=== PATIENT | female | born 1940 | race Caucasian/White ===

== ENCOUNTER 2023-07-24 06:09 | Day surgery (SDC) | payer OTHER, SELFPAY ==
[2023-07-24] VITALS (17 sets, daily range): BP systolic 95–188; BP diastolic 40–93; BMI 16.3
[2023-07-24 06:52] LABS: Hematocrit 34.8 % (37.0-47.0); Hemoglobin 11.9 g/dL (12.0-16.0); Mean Corp Hgb Conc. 34.2 g/dL (33.0-37.0); Mean Corpuscular Hgb 32.5 pg (27.0-31.0); Mean Corpuscular Volume 95.1 fL (81.0-99.0); Mean Platelet Volume 10.5 fL (7.4-10.4); Platelet Count 298 10^3/uL (130-400); Red Blood Cell Count 3.66 10^6/uL (4.20-5.40); Red Cell Dist. Width 12.5 % (11.5-14.5); White Blood Cell Count 6.4 10^3/uL (4.8-10.8)
[2023-07-24] MEDS: NSS 500 IV (07:00)
[2023-07-24 07:05] LABS: Blood Urea Nitrogen 19 mg/dl (7-17); Calcium 9.1 mg/dl (8.4-10.2); Carbon Dioxide 26 mmol/L (22-30); Chloride 108 mmol/L (98-107); Estimated Creatinine Clearance 39 ml/min; Glucose 107 mg/dl (70-99); Potassium 4.3 mmol/L (3.5-5.1); Sodium 137 mmol/L (135-145); eGFR > 60.00
[2023-07-24 07:07] LABS: APTT 33.1 Sec (23.4-35.0); INR 1.14; PT 14.6 Sec (11.4-14.6)
--- NOTE | 2023-07-24 07:10 | W.SUR.PREOP ---
Pre-Operative Surgical Note
-
I have examined this patient prior to the performance of the scheduled procedure.
The patient's condition is unchanged from the time of the current History and
Physical and the patient is able to undergo the scheduled procedure.
--- NOTE | 2023-07-24 08:39 | W.SUR.POST ---
Surgical Immediate Post Op
Note
Pre Op Diagnosis:
Post Op Diagnosis:
Procedure Performed: LLE angiogram, angioplasty DCB SFA x 2 and proximal SFA stenting x2
Primary Surgeon: Christofer
Anesthesia: Local and sedation
Estimated Blood Loss: <2cc
Fluids: see anesthesia flow sheet
Drains/Shunts: none
Specimens/Cultures: none
Doppler/Duplex/Angio (Y/N): Y
Complications: none
Operative Findings: occlusive dis below the knee with very small diseased reconstituted ankle peroneal artery with minimal outflow
[2023-07-24] MEDS: LOW STRENGTH ASPIRIN 81 MG PO (09:18)
[2023-07-24 09:19] LABS: Glucose - Point of Care 92 mg/dl (70-99)
--- NOTE | 2023-07-24 09:30 | OR.RPT ---
Operative Report
Operative Report
PROCEDURE DATE: 07/24/2023
Preoperative diagnosis: Chronic limb threatening ischemia left lower extremity.
Postoperative diagnosis: Same
Procedure:
1. Duplex assisted right common femoral artery cannulation.
2. Aortogram and pelvic angiogram.
3. Left lower extremity arteriogram with third order vessel catheterization of left popliteal artery via right common femoral artery puncture.
4. Balloon angioplasty of left distal superficial femoral artery with 4 mm angioplasty balloon.
5. Placement of Zilver PTX drug-eluting stent 6 mm x 4 cm distal left superficial femoral artery.
6. Placement of Zilver PTX drug-eluting stent 6 mm x 4 cm proximal to mid left superficial femoral artery.
7. Balloon angioplasty of origin of the left superficial femoral artery with standard and Bard Lutonix 5 mm x 4 cm drug-coated angioplasty balloon.
8. Right femoral angiogram.
9. Supervision and interpretation.
Surgeon: Christofer
Director Cardiac: None
Complications: None
Anesthesia: Local, sedation
Fluoroscopy:
9.8 min
33 mGy
6.36 Gy.cm2
Indications for procedure:
83-year-old female who presented to the office with ischemic rest pain and nonhealing tissue loss (ischemic ulcer). Noninvasive imaging suggested arterial insufficiency as did physical exam. Risk/benefits/alternatives of angiography and possible
revascularization were all fully discussed. Patient understood all wish to proceed.
Description of procedure:
Patient was identified, brought to the operating room. Placed on the table in the supine position. After the adequate administration of anesthesia, the patient was prepped and draped in the standard surgical fashion. A standard preoperative
timeout was undertaken and everybody was in agreement with the plan.
The right common femoral artery was accessed with a micropuncture kit under direct duplex ultrasound guidance. A 5 Upper Sorbian sheath was then advanced over a 0.035 inch wire, and a mcclain's hook catheter was advanced into the abdominal aorta.
Aortogram and pelvic angiogram was obtained. Findings as follows:
Significant eccentric atherosclerotic plaque throughout the aorta and bilateral common iliac arteries. However no significant stenosis identified throughout those arteries. No evidence of aneurysm. Bilateral external iliac arteries also widely
patent. Bilateral internal iliac arteries also appear generally patent without any obvious severe stenoses.
Using a floppy angled hydrophilic wire, the left common femoral artery was cannulated and the catheter was advanced. Left lower extremity arteriogram was obtained. Findings as follows:
Common femoral artery: Patent with no significant stenosis, though napkin ring like stenosis at the femoral bifurcation involving the origin of the SFA and profunda.
Profunda femoris artery: As above likely stenosis at the origin due to napkin ring like stenosis at the femoral bifurcation.
Superficial femoral artery: As noted above with napkin ring like severe stenosis very proximally/at origin. Beyond here in the midsegment about 6 to 8 cm beyond the origin there was an area of hypodensity suggestive of significant plaque. In
addition the flow/contrast flowing through there appeared to indicate a flow limitation. Beyond here in the distal SFA there was a focal occlusion. The artery tapered and then focally occluded for about a centimeter and then patent just beyond
there.
Popliteal artery: Patent with luminal irregularities. May be a mild above-knee stenosis but not as severe stenosis. Patent below the knee also with some luminal irregularities.
Anterior tibial artery: Chronically occluded. The dorsalis pedis on the foot was reconstituted via wispy peroneal collaterals for a short segment of about 4 cm. However it then essentially occluded or gave collaterals. The reconstituted dorsalis
pedis short segment was very diseased and small as well.
Tibial peroneal trunk: Chronically occluded.
Peroneal artery: Reconstituted at the ankle. Very small diminutive reconstituted vessel with minimal collateralization onto the foot.
Posterior tibial artery: Chronically occluded.
At this point I felt that there was no target vessel for revascularization below the knee. The distal peroneal artery was a very small diseased vessel and I did not think that even a surgical bypass to that artery (with the risks involved therein)
would be of any benefit. Therefore I felt that enhancing the inflow might be of benefit to dry flow through collaterals. Therefore at this point I selectively cannulated the superficial femoral artery. I then exchanged for a [employer] wire and an up
and over 6 Upper Sorbian sheath. The patient was given 4000 units of intravenous heparin. Then under roadmap assisted guidance I traverse the area of occlusion focally in the distal SFA. This was done with a flap angled hydrophilic wire and then I
advanced a CXI catheter. Angiogram confirmed as in the true lumen distally. I then exchanged back for a Storq wire. I then performed predilation with a 4 mm angioplasty balloon of the occluded short segment of SFA. I then primarily stented that
segment with a 6 mm x 4 cm Zilver PTX drug-eluting stent. I then primarily stented the more proximal SFA lesion (in the proximal to mid SFA) with a Zilver PTX 6 mm x 4 cm drug-eluting stent. I then post angioplastied both of the stents with a 5 mm
angioplasty balloon. Completion angiogram demonstrated excellent result with no residual stenosis at those locations. Next I elected to try to balloon angioplasty the origin of the SFA napkin ringlike stenosis given the patient being high risk for
surgical correction (femoral endarterectomy). I therefore then used a 4 mm in angioplasty balloon to predilate the lesion/prepped the lesion. I then used a 5 mm x 4 cm Bard Lutonix drug-coated balloon with prolonged 2-minute inflation. Completion
angiogram now demonstrated excellent result. There was actually complete resolution of the origin of the SFA stenosis. The remainder of the SFA stenoses also were nicely treated with a stent with no residual stenoses. Brisk flow into the runoff
and collaterals. At this point I was very satisfied. I then withdrew my sheath to the right external iliac artery. Right femoral angiogram demonstrated good puncture in the right common femoral artery. Therefore wires and catheters were
withdrawn. Protamine was given to reverse the heparin. The sheath was withdrawn and manual pressure was applied. The patient tolerated the procedure well. The left groin was noted to be hemostatic. Patient had a palpable left popliteal pulse
upon completion.
The patient tolerated procedure well.
[2023-07-24] MEDS: NSS 1000 IV (10:15)
== END 2023-07-24 14:30 | disposition home or self-care (01) ==
LOC: CATH 06:09
PROVIDERS: ATTENDING PHYSICIAN Surgery Vascular Surgery; FAMILY PHYSICIAN Family Medicine; OTHER PHYSICIAN Internal Medicine Cardiovascular Disease
DX: I70.245 Atherosclerosis of native arteries of left leg with ulceration of other part of foot (principal); L97.529 Non-pressure chronic ulcer of other part of left foot with unspecified severity; E11.9 Type 2 diabetes mellitus without complications; Z79.01 Long term (current) use of anticoagulants; Z87.891 Personal history of nicotine dependence; Z79.4 Long term (current) use of insulin
CPT/HCPCS: 37226; 75625; 75716; 76937; 80048; 82962; 85027; 85610; 85730; 86850; 86900; 86901; 93005; C1725; C1769; C1874; C1887; C1894; Q9967

== ENCOUNTER 2023-08-02 13:59 | Emergency (ER) | payer OTHER, SELFPAY ==
[2023-08-02 14:03] VITALS: BP 179/75
[2023-08-02 15:00] VITALS: BP 169/50
[2023-08-02 15:36] LABS: % Basophils 0.6 % (0-2); % Eosinophils 4.2 % (0-6); % Immature Granulocytes 1.1 % (0-0.5); % Monocytes 7.3 % (1.7-9.3); % Neutrophils 56.8 % (42.2-75.2); Absolute Eosinophils 0.3 10^3/uL (0-0.7); Absolute Immature Granulocytes 0.1 10^3/uL (0-0.05); Absolute Lymphocytes 1.9 10^3/uL (1.2-3.4); Absolute Monocytes 0.5 10^3/uL (0.1-0.6); Absolute Neutrophils 3.5 10^3/uL (1.4-6.5); Hematocrit 35.9 % (37.0-47.0); Hemoglobin 12.2 g/dL (12.0-16.0); Mean Corpuscular Hgb 32.6 pg (27.0-31.0); Mean Platelet Volume 10.7 fL (7.4-10.4); Nucleated Red Blood Cells % 0 %; Platelet Count 311 10^3/uL (130-400); Red Blood Cell Count 3.74 10^6/uL (4.20-5.40); Red Cell Dist. Width 12.2 % (11.5-14.5); White Blood Cell Count 6.2 10^3/uL (4.8-10.8)
[2023-08-02 15:50] LABS: INR 1.26; PT 15.6 Sec (11.4-14.6)
[2023-08-02 15:56] LABS: ALT (SGPT) 18 U/L (0-35); AST (SGOT) 36 U/L (14-36); Albumin 3.8 g/dl (3.5-5.0); Alkaline Phosphatase 94 U/L (38-126); Blood Urea Nitrogen 23 mg/dl (7-17); Carbon Dioxide 25 mmol/L (22-30); Chloride 107 mmol/L (98-107); Glucose 124 mg/dl (70-99); Potassium 4.4 mmol/L (3.5-5.1); Sodium 140 mmol/L (135-145); Total Bilirubin 1.3 mg/dl (0.2-1.3); Total Protein 7.2 g/dl (6.3-8.2); eGFR > 60.00
[2023-08-02 16:00] VITALS: BP 170/63
[2023-08-02 16:07] LABS: Troponin I < 0.012 ng/ml
[2023-08-02 16:08] VITALS: BMI 16.1
--- NOTE | 2023-08-02 16:09 | ED.GENMED ---
History of Present Illness
General
Chief Complaint: Fainting/Passed Out
Source: patient and family (Daughter)
Exam Limitations: none
Time Seen by Provider: 08/02/23 14:11
Nursing documentation reviewed up to this point in time: agreed with
Travel History
Have you had any contact with someone who has COVID-19?: No
Do you have any symptoms of coronavirus? Fever > 100 degrees, chills, cough, shortness of breath, sore throat, loss of taste or smell, muscle aches, or headache?: No
History of Present Illness
History of Present Illness:
83-year-old female with a past medical history of mild dementia, atrial fibrillation on Coumadin, hypertension, insulin-dependent diabetes who presents to the emergency room with her daughter for evaluation after syncopal event. Patient reports
that she was shopping with her daughter and while she was walking on the store she began to feel like 'something was not right.' She says that staff sat her down in the chair at the store. She says that she thinks she may have passed out. Her
daughter says that patient began to look somewhat weak and was complaining of being dizzy. Daughter says that she had brief syncopal event that lasted less than 5 seconds. Daughter said that she did not fall down or injure herself. Patient says
that aside from feeling dizzy she felt mildly nauseated but did not have any other prodromal symptoms�no chest pain, shortness of breath, palpitations. No headache or abdominal pain/flank pain. She says that she feels mildly fatigued but otherwise
feels well here in the emergency room and is already requesting discharge. Her daughter notes that she had to similar episodes earlier this week but refused transport to the emergency room for assessment.
Past History
Past History
ED Past Medical History: CVA, HTN and IDDM
ED Past Surgical History: Appendectomy, Cholecystectomy, Orthopedic and Tonsilectomy
Social History
Tobacco: Non-smoker
Alcohol: None
Personal:
Living: with family
Review of Systems
Review of Systems
All Other Systems: ROS reviewed and negative except as documented in HPI and ROS
Constitutional: Reports fatigue; Denies fever
Respiratory: Denies cough or trouble breathing
Cardiac: Reports syncope; Denies chest pain, diaphoresis or palpitations
ABD/GI: Reports nausea; Denies abdominal pain, vomiting or diarrhea
: Denies flank pain
Musculoskeletal: Denies neck pain or back pain
Neurological: Denies headache, weakness or numbness
Phy Exam
Physical Exam
Physical Exam:
General: Awake, alert, oriented x3; she is cachectic; no acute distress
Head: Normocephalic, atraumatic
Eyes: Conjunctiva normal, EOMI, pupils equal round reactive to light bilaterally
Throat: Airway intact, handling secretions
Neck: Trachea midline, supple without meningismus
Lungs: Clear to auscultation bilaterally, no wheezing, rales, rhonchi
Heart: Regular rate and rhythm, no murmurs, gallops, or rubs appreciated
Abd: Soft, non distended, nontender with no abdominal masses
Neuro: Cranial nerves grossly intact, speech fluid
Extremities: Atraumatic, warm well-perfused
Scores
Heart Failure Risk
Heart Failure Risk Score: Not Applicable
Heart Score for Chest Pain Patients
STEMI patient?: Not applicable
Withdrawal Assessment of Alcohol
Withdrawal Assessment Completed?: Not applicable
Course
Orders/Labs/Results
Orders:
Orders
08/02/23 14:08
Electrocardiogram (*1) Urgent
Reason for Study: Chest Pain
EKG- Treatment ONCE
08/02/23 15:27
Complete Blood Count/With Diff Urgent
Comprehensive Metabolic Panel Urgent
Folate Urgent
Comment: ADD ON
Prothrombin Time Urgent
Troponin I Urgent
Vitamin B12 Urgent
Comment: ADD ON
08/02/23 15:37
Folate Urgent
Vitamin B12 Urgent
08/02/23 15:43
Add On- LAB Urgent
Tests Added?: Folate, Vitamin B12
Abnormal Lab Results
08/02/23
15:27
RBC 3.74 L 10^6/uL
(4.20-5.40)
Hct 35.9 L %
(37.0-47.0)
MCH 32.6 H pg
(27.0-31.0)
MPV 10.7 H fL
(7.4-10.4)
Abs Immat Gran (auto) 0.1 H 10^3/uL
(0-0.05)
Immature Gran % 1.1 H %
(0-0.5)
PT 15.6 H Sec
(11.4-14.6)
BUN 23 H mg/dl
(7-17)
Glucose 124 H mg/dl
(70-99)
08/02/23 15:27
08/02/23 15:27
Vital Signs
Initial and Last Documented VS:
Initial Vital Signs
Temp Pulse Resp BP Pulse Ox
36.3 C 51 20 179/75 100
08/02/23 14:03 08/02/23 14:03 08/02/23 14:03 08/02/23 14:03 08/02/23 14:03
Last Documented Vital Signs
Temp Pulse Resp BP Pulse Ox
36.3 C 59 16 173/85 98
08/02/23 14:03 08/02/23 17:15 08/02/23 17:15 08/02/23 17:00 08/02/23 17:15
MDM/Problems Addressed
Differential Diagnosis Includes:
Vasovagal syncope, orthostatic/postural syncope, dehydration, anemia, electrolyte derangement, dysrhythmia; nothing by history or exam to suggest acute MD, PE, subarachnoid hemorrhage, AAA or other emergent pathology
MDM/Problems Addressed:
83-year-old female with history as document presents for evaluation after syncopal episode today happened while she was shopping at the grocery store. She feels well here aside from some mild fatigue. She had 2 similar episodes earlier this week
as well. She is hypertensive but has otherwise normal vitals here. Physical exam as above. Plan to check basic labs including CBC and CMP; check an INR as she is on Coumadin. Check B12 and folate. Monitor on telemetry and reassess at the above.
Labs reviewed: CBC unremarkable, CMP no clinically significant abnormalities. Troponin was ordered in triage despite patient denying any chest pain and is undetectable. Her INR is slightly subtherapeutic. EKG reviewed by me shows A-fib with slow
ventricular response heart rate in the 50s. Will continue to monitor in the ER.
After ED monitoring patient has been stable and asymptomatic. She feels well and is requesting discharge. Suspect this was likely medical or postural syncope. I did offer admission for observation based on her age but patient is adamant that she
wishes to go home. I advised her to follow-up with her primary care physician�I did note that she needs to discuss her weight with her primary physician as she has a BMI of 16 today and likely her frailty is contributing to her episodes of syncope.
She indicated understanding. Spoke with patient, daughter at bedside about return precautions and follow-up and all questions were answered.
Acute Exacerbation and/or Progression of Chronic Illness:
Acutely hypertensive
Acute Exacerbation and/or Progression of Chronic Illness: HTN
*Pulse Oximetry
Patient hypoxic: no
*EKG
Interpreted by ED Provider?: Yes
Heart Rate: 52
Rate: bradycardiac
Rhythm: a-fib
[place]: normal axis
Interval: normal interval
QRS Pattern: low voltage
Ischemia: no ischemia
*Critical Care Note
Total Time (30-74mins, 75-104mins- exclusive of procedures): Not Applicable
Data Reviewed
Review of Other/Old Records Reveals: Labs and Records
Source: patient and family (Daughter)
Patient Management
Social determinants of health affecting care: Strong social support
Escalation/DeEscalation of care consider admission/obs:
Offered admission but patient prefers discharge�shared decision making discharged with close PCP follow-up
ED Attending Note
-
Portions of this chart may have been created with voice recognition software.� Occasional wrong word or��sound alike� substitutions may have occurred due to the inherent limitations of voice recognition software.
Discharge Plan
Departure
Patient Disposition: Home (Routine Discharge)
Date of Disposition: 08/02/23
Time of Disposition: 17:41
Patient with high blood pressure during this ER visit?: Yes
Discharge Problem:
Syncope
Instructions: Syncope (Fainting) (DC)
Prescriptions:
No Action
warfarin 7.5 mg Tablet
7.5 mg PO TUTH
Rx Instructions:
alternate with 5mg po depending on INR
acyclovir 400 mg Tablet
400 mg PO BID
warfarin 5 mg Tablet
5 mg PO SUMOWEFRSA
cyclosporine [Restasis] 0.05 % Dropperette
1 drp BOTH EYES DAILY
rosuvastatin 5 mg Tablet
5 mg PO HS
solifenacin 10 mg Tablet
10 mg PO DAILY
Prolia 60 mg/mL Syringe
60 mg SC [id number]
Rx Instructions:
last given in February
mirabegron [Myrbetriq] 50 mg Tablet Extended Release 24 Hr
50 mg PO DAILY
tramadol 50 mg Tablet
50 mg PO Q6HPRN PRN (Reason: moderate pain) 10 Days Qty: 40 0RF
infliximab [Remicade] 100 mg Recon Soln
100 mg IV Q8W
insulin lispro [Humalog KwikPen Insulin] 100 unit/mL Insulin Pen
1 sliding scale dose SC DIRECTED
acetaminophen 500 mg tablet
1,000 mg PO TID PRN (Reason: PAIN)
donepezil 5 mg Tablet
5 mg PO HS
propranolol 20 mg Tablet
20 mg PO BID
aspirin 81 mg Tablet,Delayed Release (Dr/Ec)
81 mg PO DAILY Qty: 90 0RF
Referrals:
Lai Monzon DO [Family Provider] - Follow up in 5-7 days
Activity Restrictions/Additional Instructions:
Thank you for visiting the Emergency Department at [facility].
1. Please schedule a follow up appointment as directed. Call first thing tomorrow morning to make an appointment.
2. If indicated, please take your medications as instructed and indicated on discharge paperwork.
3. If any of your symptoms do not improve, or persist, or become more severe within 6-12 hours, please return to the emergency department for further care.
4. Please return to the emergency department if you develop a headache, neck pain/stiffness, fever greater than 100.4F, chest pain, shortness of breath, persistent nausea, vomiting, slurred speech, difficulty walking, numbness/tingling, weakness,
signs of infection or any other symptoms that are worrisome to you.
Please call [phone] if you have any questions.
Interventions
Interventions:
*Risk Screen - Suicide Last Done: 08/02/23 14:03
*General Assessment Last Done: 08/02/23 14:03
*Neglect/Abuse Screening Last Done: 08/02/23 14:03
ED- Fall Risk Assessment Last Done: 08/02/23 16:12
ED- Cardiac Assessment Last Done: 08/02/23 16:12
ED- Neurological Assessment Last Done: 08/02/23 16:12
Discharge Date and Time
Print Language: EMIRATI
[2023-08-02 17:00] VITALS: BP 173/85
[2023-08-02 17:43] LABS: Folate > 20.0 ng/ml (2.76-20); Vitamin B12 952 pg/ml (239-931)
== END 2023-08-02 18:08 | disposition home or self-care (01) ==
LOC: EMR 13:59
PROVIDERS: EMERGENCY PHYSICIAN Emergency Medicine; FAMILY PHYSICIAN Family Medicine
DX: R55 Syncope and collapse (principal); I10 Essential (primary) hypertension; F03.A0 Unspecified dementia, mild, without behavioral disturbance, psychotic disturbance, mood disturbance, and anxiety; I48.91 Unspecified atrial fibrillation; E11.9 Type 2 diabetes mellitus without complications; Z79.01 Long term (current) use of anticoagulants
CPT/HCPCS: 99284; 80053; 82607; 82746; 84484; 85025; 85610; 93005

== ENCOUNTER → 2023-09-04 14:43 | Outpatient (REF) | payer OTHER, SELFPAY | LOC: RAD 14:43 | PROVIDERS: ATTENDING PHYSICIAN Surgery Vascular Surgery; FAMILY PHYSICIAN Family Medicine | DX: I77.9 Disorder of arteries and arterioles, unspecified (principal) | CPT/HCPCS: 93922; 93925 ==

== ENCOUNTER → 2023-11-06 15:15 | Outpatient (REF) | payer OTHER, SELFPAY | LOC: RAD 15:15 | PROVIDERS: ATTENDING PHYSICIAN Internal Medicine Rheumatology; FAMILY PHYSICIAN Family Medicine | DX: M05.89 Other rheumatoid arthritis with rheumatoid factor of multiple sites (principal); M25.532 Pain in left wrist | CPT/HCPCS: 73110 ==

== ENCOUNTER → 2024-02-19 13:47 | Outpatient (REF) | payer OTHER, SELFPAY | LOC: RAD 13:47 | PROVIDERS: ATTENDING PHYSICIAN Physician Assistant; FAMILY PHYSICIAN Family Medicine | DX: I77.9 Disorder of arteries and arterioles, unspecified (principal) | CPT/HCPCS: 93922; 93925 ==

== ENCOUNTER → 2024-04-29 12:47 | Outpatient (REF) | payer OTHER, SELFPAY | LOC: HWRAD 12:47 | PROVIDERS: ATTENDING PHYSICIAN Podiatrist Foot & Ankle Surgery; FAMILY PHYSICIAN Family Medicine | DX: L97.524 Non-pressure chronic ulcer of other part of left foot with necrosis of bone (principal) | CPT/HCPCS: 73630 ==

== ENCOUNTER 2024-05-11 06:44 | Emergency (ER) | payer OTHER, SELFPAY ==
[2024-05-11 06:50] VITALS: BP 154/90
[2024-05-11 07:38] LABS: % Basophils 0.3 % (0-2); % Eosinophils 2.5 % (0-6); % Immature Granulocytes 0.1 % (0-0.5); % Lymphocytes 17.6 % (20.5-51.1); % Monocytes 9.3 % (1.7-9.3); % Neutrophils 70.2 % (42.2-75.2); Absolute Eosinophils 0.2 10^3/uL (0-0.7); Absolute Lymphocytes 1.3 10^3/uL (1.2-3.4); Absolute Monocytes 0.7 10^3/uL (0.1-0.6); Absolute Neutrophils 5.1 10^3/uL (1.4-6.5); Hematocrit 34.2 % (37.0-47.0); Hemoglobin 11.4 g/dL (12.0-16.0); Mean Corp Hgb Conc. 33.3 g/dL (33.0-37.0); Mean Corpuscular Hgb 31.9 pg (27.0-31.0); Mean Corpuscular Volume 95.8 fL (81.0-99.0); Mean Platelet Volume 10.1 fL (7.4-10.4); Nucleated Red Blood Cells % 0 %; Platelet Count 382 10^3/uL (130-400); Red Blood Cell Count 3.57 10^6/uL (4.20-5.40); Red Cell Dist. Width 13.8 % (11.5-14.5); White Blood Cell Count 7.3 10^3/uL (4.8-10.8)
[2024-05-11 07:53] LABS: ALT (SGPT) 15 U/L (0-35); AST (SGOT) 30 U/L (14-36); Alkaline Phosphatase 138 U/L (38-126); Blood Urea Nitrogen 16 mg/dl (7-17); Calcium 8.3 mg/dl (8.4-10.2); Carbon Dioxide 23 mmol/L (22-30); Chloride 106 mmol/L (98-107); Glucose 114 mg/dl (70-99); Potassium 4.4 mmol/L (3.5-5.1); Sodium 137 mmol/L (135-145); Total Bilirubin 2.5 mg/dl (0.2-1.3); eGFR > 60.00
[2024-05-11 09:07] VITALS: BP 134/86
[2024-05-11 09:10] VITALS: BMI 17.4
--- NOTE | 2024-05-11 09:28 | ED.GENMED ---
History of Present Illness
General
Chief Complaint: Breathing Problem
Time Seen by Provider: 05/11/24 08:57
History of Present Illness
History of Present Illness:
84-year-old female with history of A-fib on Coumadin, diabetes, pacemaker presenting to the emergency department for episode of difficulty breathing. Patient reports she woke up at 530 this morning to go to the bathroom. When she got up, felt like
there was something stuck in her throat, could not clear her throat and could not breathe. She called her son and son notes that on the phone she sounded very dyspneic, could not talk. He called an ambulance, on medics arrival, patient sitting on
the couch, noted to be satting 91%. They gave her a DuoNeb and reported that symptoms had improved. On arrival, patient continues to report that symptoms have improved. Denies any chest pain. Denies any fever or cough. Does note that she was
recently being treated for a left first toe infection, which is improving. Denies any history of lung disease. Denies additional acute medical complaints
Past History
Past History
ED Past Medical History: CVA, HTN and IDDM
ED Past Surgical History: Appendectomy, Cholecystectomy, Orthopedic and Tonsilectomy
Social History
Tobacco: Non-smoker
Alcohol: None
Personal:
Living: with family
Phy Exam
Physical Exam
Physical Exam:
General: Well-appearing, no clinical signs of dehydration, nontoxic and in no acute distress
HEENT: protecting airway
Neck: appears supple
CV: Normal heart rate, regular rhythm, no evidence of cyanosis
Resp: No accessory muscle use, no increased work of breathing, lungs clear to auscultation bilaterally. Normal phonation of voice
Abd: no distension
Extremities: No deformities, no swelling, no erythema. Healing wound to the left first toe at the medial aspect. No drainage. No swelling. No erythema
Neuro: alert, no focal neurologic deficit
: deferred
Rectal: deferred
Psych: Normal affect
Skin: Intact
Scores
Heart Failure Risk
Heart Failure Risk Score: Not Applicable
Course
Orders/Labs/Results
Orders:
Orders
05/11/24 06:53
Electrocardiogram (*1) Urgent
Reason for Study: Shortness of Breath
EKG- Treatment ONCE
05/11/24 07:18
CMP [Comprehensive Metabolic Panel] Urgent
Complete Blood Count/With Diff Urgent
05/11/24 09:23
CR Chest - 2 Views Urgent
Comment:
Reason For Exam: sob
05/11/24 09:39
COVID-19 Antigen Urgent
Source: Nasal Swab
Prothrombin Time Urgent
Influenza A+B Rapid Molecular Urgent
JJ Source: Nasal Swab
Specimen Description:
Abnormal Lab Results
05/11/24 05/11/24
07:18 09:39
RBC 3.57 L 10^6/uL
(4.20-5.40)
Hgb 11.4 L g/dL
(12.0-16.0)
Hct 34.2 L %
(37.0-47.0)
MCH 31.9 H pg
(27.0-31.0)
Absolute Monos (auto) 0.7 H 10^3/uL
(0.1-0.6)
Lymphocytes % 17.6 L %
(20.5-51.1)
PT 17.1 H Sec
(11.4-14.6)
Glucose 114 H mg/dl
(70-99)
Calcium 8.3 L mg/dl
(8.4-10.2)
Total Bilirubin 2.5 H mg/dl
(0.2-1.3)
Alkaline Phosphatase 138 H U/L
(38-126)
Albumin 3.0 L g/dl
(3.5-5.0)
05/11/24 07:18
05/11/24 07:18
Vital Signs
Initial and Last Documented VS:
Initial Vital Signs
Temp Pulse Resp BP Pulse Ox
97.6 F 112 30 154/90 95
05/11/24 06:50 05/11/24 06:50 05/11/24 06:50 05/11/24 06:50 05/11/24 06:50
Last Documented Vital Signs
Temp Pulse Resp BP Pulse Ox
97.6 F 89 15 138/77 98
05/11/24 06:50 05/11/24 11:36 05/11/24 11:36 05/11/24 11:53 05/11/24 11:36
MDM/Problems Addressed
MDM/Problems Addressed:
84-year-old female with history of A-fib on Coumadin, pacemaker, diabetes presenting to the emergency department for episode of difficulty breathing. Vital signs on arrival are significant for tachycardia, which has improved without intervention.
On exam, patient is resting comfortably, no acute distress. Normal phonation of voice, no increased work of breathing. No focal abnormal lung sounds. Unclear etiology surrounding preceding events. Patient notes at the time, she felt like she had
something stuck in her throat that she could not clear, and she felt like she 'needed a cough medication '. She reports resolution of symptoms after the medics gave her a DuoNeb. Suspect possible mucous plug versus phlegm that was temporarily
obstructing airway, and has since resolved. Patient is afebrile, nontoxic. Screening laboratory analysis is unremarkable. Will obtain chest x-ray imaging to ensure no developing aspiration or pneumonia. Will send viral swabs.
11:35 - Chest x-ray without significant acute cardiopulmonary disease, mention of small pleural effusions. Viral swabs are negative. On reassessment, patient remains stable, particularly from a respiratory standpoint. Feel that she is stable for
discharge with close interval follow-up with her primary care doctor. Return precautions discussed and patient verbalized understanding
*EKG
Interpreted by ED Provider?: Yes
EKG Intrepretation Date: 05/11/24
EKG Intrepretation Time: 09:33
Interpretation: abnormal
Heart Rate: 90
Rate: normal
Rhythm: a-fib
[place]: normal axis
QRS Pattern: other (incomplete RBBB)
Ischemia: non-specific ST changes
*Critical Care Note
Total Time (30-74mins, 75-104mins- exclusive of procedures): Not Applicable
ED Attending Note
-
Portions of this chart may have been created with voice recognition software.� Occasional wrong word or��sound alike� substitutions may have occurred due to the inherent limitations of voice recognition software.
Discharge Plan
Departure
Patient Disposition: Home (Routine Discharge)
Date of Disposition: 05/11/24
Time of Disposition: 11:36
Patient with high blood pressure during this ER visit?: No
Condition: Good
Discharge Problem:
Acute dyspnea
Instructions: Shortness of Breath (Dyspnea) (DC)
Prescriptions:
New
albuterol sulfate 90 mcg/actuation HFA aerosol inhaler
1 puff inhalation Q6H PRN (Reason: shortness of breath or wheezing) Qty: 8.5 0RF
No Action
warfarin 7.5 mg Tablet
7.5 mg PO TUTH
Rx Instructions:
alternate with 5mg po depending on INR
acyclovir 400 mg Tablet
400 mg PO BID
warfarin 5 mg Tablet
5 mg PO SUMOWEFRSA
cyclosporine [Restasis] 0.05 % Dropperette
1 drp BOTH EYES DAILY
rosuvastatin 5 mg Tablet
5 mg PO HS
solifenacin 10 mg Tablet
10 mg PO DAILY
Prolia 60 mg/mL Syringe
60 mg SC [id number]
Rx Instructions:
last given in February
mirabegron [Myrbetriq] 50 mg Tablet Extended Release 24 Hr
50 mg PO DAILY
tramadol 50 mg Tablet
50 mg PO Q6HPRN PRN (Reason: moderate pain) 10 Days Qty: 40 0RF
infliximab [Remicade] 100 mg Recon Soln
100 mg IV Q8W
insulin lispro [Humalog KwikPen Insulin] 100 unit/mL Insulin Pen
1 sliding scale dose SC DIRECTED
acetaminophen 500 mg tablet
1,000 mg PO TID PRN (Reason: PAIN)
donepezil 5 mg Tablet
5 mg PO HS
propranolol 20 mg Tablet
20 mg PO BID
aspirin 81 mg Tablet,Delayed Release (Dr/Ec)
81 mg PO DAILY Qty: 90 0RF
Referrals:
Lai Monzon DO [Family Provider] -
Activity Restrictions/Additional Instructions:
You were seen in the emergency department for episode of difficulty breathing
You were found to have normal blood work and viral swabs, as well as chest x-ray imaging. Your INR was noted to be low, which you were already aware of. Please follow-up with your doctor as scheduled for adjustment of your Coumadin.
Please follow-up closely with your primary care physician.
Return to the emergency department for any worsening of your symptoms, or any development of chest pain, difficulty breathing, abdominal pain with persistent vomiting and inability to tolerate food or liquid by mouth (concern for dehydration),
weakness, headache or confusion, fever greater than 100.4, or any additional symptoms that are concerning to you.
Thank you for choosing [facility].
Interventions
Interventions:
*Risk Screen - Suicide Last Done: 05/11/24 06:50
*General Assessment Last Done: 05/11/24 10:00
*Neglect/Abuse Screening Last Done: 05/11/24 06:50
ED- Fall Risk Assessment Last Done: 05/11/24 12:12
*ED COVID-19 Vaccine History Last Done: 05/11/24 10:00
*Nursing Disposition Last Done: 05/11/24 12:12
ED- Cardiac Assessment Last Done: 05/11/24 10:00
ED-Musculoskeletal Assessment Last Done: 05/11/24 10:00
ED- Pulmonary Assessment Last Done: 05/11/24 10:00
Discharge Date and Time
Discharge Date/Time: 05/11/24 12:13
Print Language: KINYARWANDA
[2024-05-11 09:57] LABS: INR 1.37; PT 17.1 Sec (11.4-14.6)
[2024-05-11 10:11] LABS: COVID-19 Antigen Negative (Negative)
[2024-05-11 11:05] VITALS: BP 136/70
[2024-05-11 11:53] VITALS: BP 138/77
== END 2024-05-11 12:13 | disposition home or self-care (01) ==
LOC: EMR 06:44
PROVIDERS: Student in an Organized Health Care Education/Training Program; EMERGENCY PHYSICIAN Student in an Organized Health Care Education/Training Program; FAMILY PHYSICIAN Family Medicine
DX: R06.00 Dyspnea, unspecified (principal); J90 Pleural effusion, not elsewhere classified; I48.91 Unspecified atrial fibrillation; E11.9 Type 2 diabetes mellitus without complications; I10 Essential (primary) hypertension; Z79.01 Long term (current) use of anticoagulants; Z79.4 Long term (current) use of insulin; Z86.73 Personal history of transient ischemic attack (TIA), and cerebral infarction without residual deficits; Z90.49 Acquired absence of other specified parts of digestive tract; Z95.0 Presence of cardiac pacemaker; Z11.52 Encounter for screening for COVID-19
CPT/HCPCS: 99285; 71046; 80053; 85025; 85610; 87502; 87811; 93005

== ENCOUNTER 2024-05-22 04:37 | Inpatient (IN) | payer OTHER, SELFPAY ==
[2024-05-22] VITALS (15 sets, daily range): BP systolic 95–153; BP diastolic 44–73; PULSE 74; O2SAT 97; BMI 17.7
[2024-05-22 01:02] LABS: % Basophils 0.4 % (0-2); % Eosinophils 0.1 % (0-6); % Immature Granulocytes 0.4 % (0-0.5); % Lymphocytes 24.4 % (20.5-51.1); % Monocytes 6.8 % (1.7-9.3); % Neutrophils 67.9 % (42.2-75.2); Absolute Lymphocytes 1.8 10^3/uL (1.2-3.4); Absolute Monocytes 0.5 10^3/uL (0.1-0.6); Hematocrit 35.6 % (37.0-47.0); Hemoglobin 11.9 g/dL (12.0-16.0); Mean Corp Hgb Conc. 33.4 g/dL (33.0-37.0); Mean Corpuscular Hgb 31.8 pg (27.0-31.0); Mean Corpuscular Volume 95.2 fL (81.0-99.0); Mean Platelet Volume 10.6 fL (7.4-10.4); Nucleated Red Blood Cells % 0 %; Platelet Count 295 10^3/uL (130-400); Red Blood Cell Count 3.74 10^6/uL (4.20-5.40); Red Cell Dist. Width 13.3 % (11.5-14.5); White Blood Cell Count 7.3 10^3/uL (4.8-10.8)
--- NOTE | 2024-05-22 01:12 | ED.GENMED ---
History of Present Illness
General
Chief Complaint: Pneumonia Symptoms
Source: patient, records, family and ambulance crew
Exam Limitations: dementia
Time Seen by Provider: 05/22/24 01:05
Nursing documentation reviewed up to this point in time: agreed with
History of Present Illness
History of Present Illness:
84-year-old female with a past medical history of dementia, hypertension, atrial fibrillation, diabetes who presents to the emergency room with her son for evaluation of breathing difficulties. Patient was seen last week in the ER for transient
dyspnea that son attributes to anxiety�unfortunately patient's daughter with whom she lived recently . A few days after ER visit son says that he developed pneumonia and his mother developed similar symptoms shortly thereafter�started
having noisy breathing/'gurgling' in her throat. No cough but patient labored with breathing, short of breath with exertion. Too weak to stand. She has chronic edema in her legs no change. No fever noted. No GI symptoms noted. She was seen by
telehealth on Friday and was prescribed doxycycline and she has taken 5 doses of this but symptoms not improving and so son brought her back to the ER to be reevaluated.
Past History
Past History
ED Past Medical History: CVA, HTN and IDDM
ED Past Surgical History: Appendectomy, Cholecystectomy, Orthopedic and Tonsilectomy
Social History
Tobacco: Non-smoker
Alcohol: None
Personal:
Living: with family
Review of Systems
Review of Systems
Unable to obtain full review of systems at this time due to: dementia
All Other Systems: Not applicable
Phy Exam
Physical Exam
Physical Exam:
General: Awake, alert; no acute distress
Head: Normocephalic, atraumatic
Eyes: Conjunctiva normal
Throat: Airway intact, handling secretions
Neck: Trachea midline, no JVD
Lungs: Scattered Rales throughout all lung jameson
Heart: Regular rate but irregularly irregular rhythm
Abd: Soft, non distended, nontender
Neuro: Good tone
Extremities: +1 edema in the lower extremities bilaterally
Scores
Heart Failure Risk
Heart Failure Risk Score: Not Applicable
Heart Score for Chest Pain Patients
STEMI patient?: Not applicable
Withdrawal Assessment of Alcohol
Withdrawal Assessment Completed?: Not applicable
Course
Orders/Labs/Results
Orders:
Orders
05/22/24 00:42
Electrocardiogram (*1) Urgent
Reason for Study: Other
Other Reason for Exam: Respiratory Distress
Cardiac Monitoring- Treatment ONCE
EKG- Treatment ONCE
IV Insert/Care/Rem.- Treatment PRN
Interrogate Pacemaker- Treatment ONCE
CR Chest - 2 Views Urgent
Comment:
Reason For Exam: respiratory distress
O2 Therapy [RESP] Urgent
Titrate/Wean O2 to maintain O2 sat greater than (%): 93
Special Instructions: TO MAINTAIN CONTINUOUS O2 SATS >/= 93%
Pulse Ox/cont/shift [RESP] Urgent
Quantity: 1
Special Instructions: continuous pulse ox
05/22/24 00:47
Complete Blood Count/With Diff Urgent
05/22/24 01:37
Comprehensive Metabolic Panel Urgent
NT-proBNP Urgent
Troponin I Urgent
05/22/24 02:20
Furosemide [Lasix] 40 mg IV NOW STA
Abnormal Lab Results
05/22/24 05/22/24
00:47 01:37
RBC 3.74 L 10^6/uL
(4.20-5.40)
Hgb 11.9 L g/dL
(12.0-16.0)
Hct 35.6 L %
(37.0-47.0)
MCH 31.8 H pg
(27.0-31.0)
MPV 10.6 H fL
(7.4-10.4)
BUN 25 H mg/dl
(7-17)
Glucose 137 H mg/dl
(70-99)
Calcium 7.9 L mg/dl
(8.4-10.2)
Total Bilirubin 1.8 H mg/dl
(0.2-1.3)
AST 142 H U/L
(14-36)
ALT 70 H U/L
(0-35)
Alkaline Phosphatase 155 H U/L
(38-126)
Troponin I 0.038 H* ng/ml
Albumin 2.7 L g/dl
(3.5-5.0)
05/22/24 00:47
05/22/24 01:37
Vital Signs
Initial and Last Documented VS:
Initial Vital Signs
Temp Pulse Resp BP Pulse Ox
36.7 C 97 20 145/63 82
05/22/24 00:36 05/22/24 00:36 05/22/24 00:36 05/22/24 00:36 05/22/24 00:36
Last Documented Vital Signs
Temp Pulse Resp BP Pulse Ox
36.7 C 91 27 145/63 94
05/22/24 00:36 05/22/24 00:41 05/22/24 00:41 05/22/24 00:36 05/22/24 00:42
MDM/Problems Addressed
Differential Diagnosis Includes:
Pneumonia, CHF, bronchitis
MDM/Problems Addressed:
84-year-old female presents with worsening breathing difficulties over the past week. She is tachypneic and hypoxic requiring 4 L nasal cannula. Normotensive, heart rate in the 90s. Afebrile. Physical exam as above. Will place an IV send labs
including a CBC and a CMP, viral swabs, troponin, proBNP. Check stat EKG and chest x-ray. Interrogate device (Tabtor). Monitor very closely reassess after the above.
Reviewed report from patient's pacemaker�has had a few episodes of NSVT but no significant events noted.
Labs reviewed: CBC shows marginal anemia, no leukocytosis. CMP shows mildly abnormal LFTs; troponin and proBNP are elevated; chest x-ray reviewed by me shows significant pulmonary edema. Findings are consistent with acute CHF. Will treat with IV
Lasix. Admit for continued management of acute hypoxic respiratory failure secondary to CHF. Discussed with hospitalist.
Chronic conditions affecting care:
Dementia
*Radiology
Radiology exam reviewed: preliminary read by ED provider
*Pulse Oximetry
Patient hypoxic: yes
*EKG
Interpreted by ED Provider?: Yes
Heart Rate: 97
Rate: normal
Rhythm: a-fib
[place]: normal axis
Interval: normal interval
QRS Pattern: right bundle branch block
Ischemia: non-specific ST changes
*Critical Care Note
Total Time (30-74mins, 75-104mins- exclusive of procedures): Not Applicable
Data Reviewed
Review of Other/Old Records Reveals: Labs, Records and Radiology Studies
Source: patient, records, family and ambulance crew
Patient Management
Discussion with other providers: Hospitalist (Discussed with hospitalist)
Escalation/DeEscalation of care consider admission/obs:
Admission indicated
ED Attending Note
-
Portions of this chart may have been created with voice recognition software.� Occasional wrong word or��sound alike� substitutions may have occurred due to the inherent limitations of voice recognition software.
Discharge Plan
Departure
Patient Disposition: Admit
Date of Disposition: 05/22/24
Time of Disposition: 02:21
Admit to doctor: Jaun
Presentation/result/management discussed w/ accepting MD/DO: Hospitalist
Discharge Problem:
Acute hypoxic respiratory failure, CHF (congestive heart failure)
Prescriptions:
No Action
acyclovir 400 mg Tablet
400 mg PO BID
cyclosporine [Restasis] 0.05 % Dropperette
1 drp BOTH EYES DAILY
rosuvastatin 5 mg Tablet
5 mg PO HS
Prolia 60 mg/mL Syringe
60 mg SC [id number]
Rx Instructions:
last given in February
mirabegron [Myrbetriq] 50 mg Tablet Extended Release 24 Hr
50 mg PO DAILY
infliximab [Remicade] 100 mg Recon Soln
100 mg IV Q8W
insulin lispro [Humalog KwikPen Insulin] 100 unit/mL Insulin Pen
1 sliding scale dose SC DIRECTED
acetaminophen 500 mg tablet
1,000 mg PO TID PRN (Reason: PAIN)
donepezil 5 mg Tablet
5 mg PO HS
propranolol 20 mg Tablet
20 mg PO BID
aspirin 81 mg Tablet,Delayed Release (Dr/Ec)
81 mg PO DAILY Qty: 90 0RF
Referrals:
UNKNOWN - PT DOES,NOT KNOW [Family Provider] -
Interventions
Interventions:
*Risk Screen - Suicide Last Done: 05/22/24 00:36
*General Assessment Last Done: 05/22/24 00:36
*Neglect/Abuse Screening Last Done: 05/22/24 00:36
*ED COVID-19 Vaccine History Last Done: 05/22/24 00:36
ED- Cardiac Assessment Last Done: 05/22/24 00:42
ED- Pulmonary Assessment Last Done: 05/22/24 00:42
Discharge Date and Time
Print Language: LAO
[2024-05-22 02:10] LABS: ALT (SGPT) 70 U/L (0-35); AST (SGOT) 142 U/L (14-36); Albumin 2.7 g/dl (3.5-5.0); Alkaline Phosphatase 155 U/L (38-126); Blood Urea Nitrogen 25 mg/dl (7-17); Calcium 7.9 mg/dl (8.4-10.2); Carbon Dioxide 24 mmol/L (22-30); Chloride 101 mmol/L (98-107); Estimated Creatinine Clearance 37 ml/min; Glucose 137 mg/dl (70-99); Sodium 135 mmol/L (135-145); Total Bilirubin 1.8 mg/dl (0.2-1.3); Total Protein 6.4 g/dl (6.3-8.2); eGFR > 60.00
[2024-05-22 02:18] LABS: NT-proBNP 4770 pg/ml; Troponin I 0.038 ng/ml
[2024-05-22] MEDS: LASIX 40 MG IV ×2 (02:35→10:12)
--- NOTE | 2024-05-22 04:32 | HPS.HSE ---
Family Physician
-
Family Physician: NOT KNOW UNKNOWN - PT DOES
Chief Complaint
-
SOB
History of Present Illness
Patient is an 84y F with PMH significant for RA, hypertension and DM-II who presents to ED complaining of SOB. History obtained from patient and her family at the bedside. Patient complains of SOB for the past several days. She was initially
seen in the ED here on 05/11 with an episodes of 'throat congestion' and SOB. She has since noted continued, similar symptoms. She has 'gurgling' and audible congestion in the throat / upper airway. She has been unable to clear this / produce much
mucus. Her son incidentally has since developed cough and congestion. He is currently on abx for pneumonia.
Patient had a telehealth visit a few days ago and was started on doxycycline. She has appreciated no changes in her symptoms.
She denies any chest pain, fevers / chills, GI or complaints.
She has had a stressful several months. Her daughter last month from renal cancer.
Medical History
Past Medical History
Past Medical History: Reports Other
Additional Past Medical History:
Atrial Fibrillation
ASCVD
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
Rheumatoid Arthritis
DM-II
Past Surgical History: Reports Other
Additional Past Surgical History:
T&A
Hand Surgery
Back Surgery
Social History
Tobacco: Non-smoker
Alcohol: None
Drug: None
Family History
Family History: Other (Brother: DM Daughter: DM, Renal Cell Cancer)
Allergies / Home Medications
Allergies reflects when Allergies were last updated in [facility].
Home Medications with original date entered in [facility]
Allergy/Medication List:
Allergies
Allergy/AdvReac Type Severity Reaction Status Date / Time
No Known Allergies Allergy Verified 05/11/24 06:52
Home Medications
acyclovir 400 mg tablet 400 mg PO BID 04/27/22
cyclosporine 0.05 % eye drops in a dropperette (Restasis) 1 drp BOTH EYES DAILY 04/27/22
denosumab 60 mg/mL subcutaneous syringe (Prolia) 60 mg SC [id number] 04/27/22
mirabegron 50 mg tablet,extended release 24 hr (Myrbetriq) 50 mg PO DAILY 04/27/22
rosuvastatin 5 mg tablet 5 mg PO HS 04/27/22
acetaminophen 500 mg tablet 1,000 mg PO TID PRN PAIN 07/23/23
infliximab 100 mg intravenous solution (Remicade) 100 mg IV Q8W 07/23/23
insulin lispro 100 unit/mL subcutaneous pen (Humalog KwikPen (U-100) Insulin) 1 sliding scale dose SC DIRECTED 07/23/23
aspirin 81 mg tablet,delayed release 81 mg PO DAILY #90 tabs 07/24/23
donepezil 5 mg tablet 5 mg PO HS 07/24/23
propranolol 20 mg tablet 20 mg PO BID 07/24/23
Review of Systems
-
History Source: Patient
A 12 point ROS was completed and negative except as noted: Yes
Constitutional: Reports Fatigue; Denies Fever or Chills
EENT: Reports Other (Throat congestion); Denies Sore Throat
Respiratory: Reports Trouble Breathing; Denies Cough
Cardiac: Denies Chest Pain, Palpitations or Syncope
Abdomen/GI: Denies Abdominal Pain, Nausea, Vomiting or Diarrhea
: Denies Dysuria or Frequency
Musculoskeletal: Reports Edema; Denies Joint Pain
Neurological: Denies Dizzy or Headache
Psych: Denies Depression or Anxiety
Physical Exam
Vital Signs
Vital Signs
Temp Pulse Resp BP Pulse Ox
98.1 F 74 20 119/54 95
05/22/24 00:36 05/22/24 04:00 05/22/24 04:00 05/22/24 04:00 05/22/24 04:00
Physical Exam
General: Other (Frail, cachectic 84y F in no acute distress.)
HEENT: Moist mucous membranes, PERRLA and Other (Neck is supple. )
Respiratory: Other (Diffuse rhonchi and rales throughout. Unable to clear with cough.)
Cardiac: S1/S2 and Irregular Rhythm; No Murmur
GI: Soft, Non Tender, Non Distended and Normal Bowel Sounds
Musculoskeletal: No Clubbing, No Cyanosis and Other (2+ pitting edema to th edistal thighs bilaterally.)
Neuro: AO x 3
Laboratory Results
-
05/22/24 00:47
05/22/24 01:37
Laboratory Results
Total Bilirubin 1.8 mg/dl (0.2-1.3) H 05/22/24 01:37
AST 142 U/L (14-36) H 05/22/24 01:37
ALT 70 U/L (0-35) H 05/22/24 01:37
Alkaline Phosphatase 155 U/L (38-126) H 05/22/24 01:37
Troponin I 0.038 ng/ml H* 05/22/24 01:37
Impression/Plan
-
A/P: Patient is an 84y F with PMH significant for A-Fib, DM-II and RA who presents to ED complaining of SOB and throat congestion x several days.
Acute HF - Unknown Type
Acute Hypoxemic Respiratory Failure secondary to the above
- Admit for further evaluation and treatment.
- Patient with persistent dyspnea, LE edema, elevated BNP, etc consistent with CHF.
- CXR with more prominent pulm edema pattern compared to prior.
- Continue IV Lasix daily and follow for clinical improvement.
- Check Echo.
- Cardio evaluation for additional recommendations.
- Seems less likely an atypical pneumonia - repeat COVID / Flu. Follow temperature curve, etc.
- ? other ILD such as rheumatoid lung etc - consider further evaluation if poor response to diuresis.
Abnormal Troponin - Suspect non-ischemic myocardial injury
ASCVD
- Likely secondary to CHF as noted above
- Follow troponin to peak.
- Continue current CV med regimen including ASA, statin, etc.
Permanent Atrial Fibrillation
- Stable. Continue propranolol.
- Not on chronic OAC.
- Monitor on telemetry.
DM-II
- Stable. Follow glucose and cover with SSI if needed.
- Update A1C.
Rheumatoid Arthritis
- Stable. No acute joint pain, etc.
- On Remicade infusions as an outpatient.
- Continue prophylactic acyclovir.
DVT Prophylaxis: Subcut heparin
Code Status: Full
[2024-05-22 04:33] LABS: COVID-19 Antigen Negative (Negative)
[2024-05-22 05:28] LABS: Procalcitonin 3.31 ng/ml (0.0-0.25)
[2024-05-22 07:00] LABS: Glucose - Point of Care 99 mg/dl (70-99)
[2024-05-22 07:54] LABS: Hematocrit 36.1 % (37.0-47.0); Hemoglobin 12.1 g/dL (12.0-16.0); Mean Corp Hgb Conc. 33.5 g/dL (33.0-37.0); Mean Corpuscular Hgb 31.7 pg (27.0-31.0); Mean Corpuscular Volume 94.5 fL (81.0-99.0); Mean Platelet Volume 10.5 fL (7.4-10.4); Platelet Count 306 10^3/uL (130-400); Red Blood Cell Count 3.82 10^6/uL (4.20-5.40); Red Cell Dist. Width 13.3 % (11.5-14.5); White Blood Cell Count 7.3 10^3/uL (4.8-10.8)
[2024-05-22 08:12] LABS: Troponin I 0.039 ng/ml
[2024-05-22 08:48] LABS: ALT (SGPT) 66 U/L (0-35); AST (SGOT) 129 U/L (14-36); Albumin 2.8 g/dl (3.5-5.0); Alkaline Phosphatase 154 U/L (38-126); Blood Urea Nitrogen 25 mg/dl (7-17); Carbon Dioxide 29 mmol/L (22-30); Chloride 99 mmol/L (98-107); Direct Bilirubin 0.6 mg/dl (0.0-0.4); Estimated Creatinine Clearance 37 ml/min; Glucose 106 mg/dl (70-99); HDL Cholesterol 30 mg/dl; LDL Cholesterol, Calculated 85 mg/dl; Potassium 3.7 mmol/L (3.5-5.1); Sodium 136 mmol/L (135-145); Total Bilirubin 1.7 mg/dl (0.2-1.3); Total Cholesterol 135 mg/dl (50-199); Total Protein 6.5 g/dl (6.3-8.2); Triglyceride 101 mg/dl (10-149); Very Low Density Lipoprotein 20 mg/dl (0-30); eGFR > 60.00
[2024-05-22] MEDS: HEPARIN 5000 UNITS SC ×2 (10:07→20:16)
[2024-05-22] MEDS: ROCEPHIN 1000 MG IV (10:07)
[2024-05-22] MEDS: STERILE WATER FOR INJECTION 10 ML IV (10:07)
[2024-05-22] MEDS: ZOVIRAX 400 MG PO ×5 (10:07→23:13)
[2024-05-22] MEDS: MUCINEX 600 MG PO ×2 (10:07→20:16)
[2024-05-22] MEDS: ASPIR LOW (ENTERIC COATED) 81 MG PO (10:07)
[2024-05-22] MEDS: VIBRAMYCIN 100 MG PO ×2 (10:07→20:17)
[2024-05-22] MEDS: RESTASIS 0.05% OPHTHALMIC EMULSION 1 DROPS BOTH EYES (10:08)
[2024-05-22] MEDS: INDERAL 20 MG PO ×2 (10:08→20:17)
[2024-05-22] MEDS: FLUSH (NSS) 2 FLUSH IV (10:09)
--- NOTE | 2024-05-22 11:19 | CON.CAR ---
Consultation
Consultation Request
Date/Time Consultation Requested: 05/22/2024
Date/Time Consultation Performed: 05/22/2024
Requesting Provider: Dr. Angeles
Performing Provider: Dr. Abreu
Reason for Consultation: CHF
Medical History
-
Chief Complaint: Shortness of breath
History of Present Illness:
84-year-old female with dementia, likely permanent atrial fibrillation (likely not on systemic anticoagulation secondary to fall/bleeding risk), hypertension, diabetes, previous CVA, rheumatoid arthritis, anxiety admitted with shortness of breath;
found to have influenza pneumonia. Cardiology consulted for concern for superimposed CHF; cardiac BNP 4770 and lower extremity edema. Patient is a poor historian.
Past Medical History
Past Medical History: HTN, Hypercholesterolemia and NIDDM
Past Surgical History: Appendectomy, Cholecystectomy, Orthopedic (Hand surgery, back surgery) and Tonsilectomy
Social History
Tobacco: Non-Smoker
Alcohol: None
Drug: None
Living: With Family
Employment: Retired
Family History
Family History: Reviewed & Not Pertinent
Allergies / Home Medications
Allergy/AdvReac Type Severity Reaction Status Date / Time
No Known Allergies Allergy Verified 05/11/24 06:52
�Medication �Instructions �Recorded �Confirmed �Type
acyclovir 400 mg tablet 400 mg PO BID 04/27/22 05/22/24 History
cyclosporine 0.05 % eye drops in a 1 drp BOTH EYES DAILY 04/27/22 05/22/24 History
dropperette (Restasis)
denosumab 60 mg/mL subcutaneous 60 mg SC [id number] 04/27/22 05/22/24 History
syringe (Prolia)
mirabegron 50 mg tablet,extended 50 mg PO DAILY 04/27/22 05/22/24 History
release 24 hr (Myrbetriq)
rosuvastatin 5 mg tablet 5 mg PO HS 04/27/22 05/22/24 History
acetaminophen 500 mg tablet 1,000 mg PO TID PRN PAIN 07/23/23 05/22/24 History
infliximab 100 mg intravenous 100 mg IV Q8W 07/23/23 05/22/24 History
solution (Remicade)
insulin lispro 100 unit/mL 1 sliding scale dose SC DIRECTED 07/23/23 05/22/24 History
subcutaneous pen (Humalog KwikPen
(U-100) Insulin)
aspirin 81 mg tablet,delayed 81 mg PO DAILY #90 tabs 07/24/23 05/22/24 Rx
release
donepezil 5 mg tablet 5 mg PO HS 07/24/23 05/22/24 History
propranolol 20 mg tablet 20 mg PO BID 07/24/23 05/22/24 History
Review of Systems
-
Unable to obtain full review of systems at this time due to: Dementia
Physical Exam
Vital Signs
Temp Pulse Resp BP Pulse Ox
97.6 F 73 18 153/70 100
05/22/24 07:00 05/22/24 07:00 05/22/24 07:00 05/22/24 07:00 05/22/24 07:00
Lab Results
05/22/24 07:36
05/22/24 07:35
Troponin I 0.039 ng/ml H* 05/22/24 07:35
Bli-Y-Kixadgykqfx Pept 4770 pg/ml 05/22/24 01:37
Physical Exam
General: No Apparent Distress and Comfortable
HEENT: Anicteric
Respiratory: Wheezes (Bilateral) and Crackles (Bilateral)
Cardiac: S1/S2, Irregular Rhythm, Murmur (Soft 2/6) and Peripheral Edema (2+)
Breast: Deferred by me
GI: Soft
Rectal: Deferred by Provider
Musculoskeletal: Edema (2+)
Skin: Warm and Dry
Neuro: Alert
Psych: Calm
Impression / Plan
-
84-year-old female with dementia, likely permanent atrial fibrillation (likely not on systemic anticoagulation secondary to fall/bleeding risk), hypertension, diabetes, previous CVA, rheumatoid arthritis, anxiety admitted with shortness of breath;
found to have influenza pneumonia. Cardiology consulted for concern for superimposed CHF; cardiac BNP 4770 and lower extremity edema. Patient is a poor historian.
CHF:
-Type unknown.
-Likely exacerbated by influenza A.
-Continue Lasix 40 mg IV daily.
-Echocardiogram on Friday.
Influenza A pneumonia:
-Management as per primary team.
Likely permanent atrial fibrillation:
-Rate-controlled.
-Likely not on systemic anticoagulation secondary to fall/bleeding risk.
-Continue propranolol.
RBBB:
-Appears to be clinically stable.
-Echocardiogram on Friday.
Hypertension:
-Blood pressure stable/controlled.
Hyperlipidemia:
-Continue rosuvastatin.
Mild troponin elevation:
-Likely acute nonischemic myocardial injury in the setting of CHF exacerbation and infection (influenza A).
Diabetes:
-Management as per primary team.
Data Reviewed
-
EKG: Tracing Personally Visualized and interpreted (EKG: Atrial fibrillation at 97 bpm with right bundle branch block)
Radiology: Report Reviewed by me (Chest x-ray: Small bilateral pleural effusions with interstitial opacification and patchy airspace opacities which are more pronounced on the right.)
Medical Tests (Nuc Med, Echo etc): Report Reviewed by me
Labs: Labs Reviewed by me
[2024-05-22 11:29] LABS: Glucose - Point of Care 130 mg/dl (70-99)
--- NOTE | 2024-05-22 12:41 | W.PN.HOSP.TC ---
Today's Communication/Plan
-
start Tamiflu
cardio consult appreciated
Pulm consult
IV Lasix to continue
Assessment / Plan
Assessment / Plan
Acute HF - Unknown Type, most likely exacerbation associated with influenza
Acute Hypoxemic Respiratory Failure secondary to the above
- Admit for further evaluation and treatment.
- Patient with persistent dyspnea, LE edema, elevated BNP, etc consistent with CHF.
- CXR with more prominent pulm edema pattern compared to prior.
- Continue IV Lasix daily and follow for clinical improvement.
- Check Echo.
- Cardio evaluation for additional recommendations.
input appreciated
- ? other ILD such as rheumatoid lung etc -a strong consideration
will request Pulm consult
Influenza A Pos
will start Tamiflu
Abnormal Troponin - Suspect non-ischemic myocardial injury
ASCVD
- Likely secondary to CHF as noted above
- Follow troponin 0.038-->0.039
- Continue current CV med regimen including ASA, statin, etc.
Permanent Atrial Fibrillation
- Stable. Continue propranolol.
- Not on chronic OAC.
- Monitor on telemetry.
Cachexia
Albumin 2.8 with severe supraclavicular muscle wasting
DM-II
- Stable. Follow glucose and cover with SSI if needed.
-6.0% A1C.
Rheumatoid Arthritis
- Stable. No acute joint pain, etc.
- On Remicade infusions as an outpatient.
- Continue prophylactic acyclovir.
Will order CT of chest
DVT Prophylaxis: Subcut heparin
Code Status: Full
Anticipated Discharge: > 48 hours
Subjective/Interval History
-
Date of Service: May 22, 2024
Awake, alert, answering basic questions, remains sob
Objective Data
-
Labs:
Laboratory Results
05/22/24 05/22/24 05/22/24
00:47 01:37 07:35
WBC 7.3
Hgb 11.9 L
Hct 35.6 L
Plt Count 295
Sodium Cancelled 135 136
Potassium Cancelled 4.0 3.7
Chloride Cancelled 101 99
Carbon Dioxide Cancelled 24 29
BUN Cancelled 25 H 25 H
Creatinine Cancelled 0.7 0.7
Glucose Cancelled 137 H 106 H
Calcium Cancelled 7.9 L 8.0 L
Total Bilirubin Cancelled 1.8 H 1.7 H
AST Cancelled 142 H 129 H
ALT Cancelled 70 H 66 H
Alkaline Phosphatase Cancelled 155 H 154 H
05/22/24
07:36
WBC 7.3
Hgb 12.1
Hct 36.1 L
Plt Count 306
Sodium
Potassium
Chloride
Carbon Dioxide
BUN
Creatinine
Glucose
Calcium
Total Bilirubin
AST
ALT
Alkaline Phosphatase
Vital Signs:
Vital Signs
Temp Pulse Resp BP Pulse Ox
97.4 F 78 18 95/44 92
05/22/24 11:05 05/22/24 11:05 05/22/24 11:05 05/22/24 11:05 05/22/24 11:05
Review of Systems
-
Unable to obtain full review of systems at this time due to: Dementia (appears mild)
History Source: Patient and Coordinated Provider
Constitutional: Denies Fever
EENT: Reports No Symptoms Reported
Respiratory: Reports Cough and Trouble Breathing
Cardiac: Denies Chest Pain
Abdomen/GI: Reports No Symptoms
Physical Exam
-
General: Well Developed, Respiratory Distress and Cachectic
HEENT: Normocephalic, Atraumatic and Moist Mucous Membranes
Respiratory: Wheezes (diffuse coarse wheeze) and Rales (diffuse interstitial rales)
Cardiac: Regular Rhythm and S1/S2
GI: Soft, Nontender and Nondistended
Musculoskeletal: No Clubbing, No Cyanosis and No Edema
[2024-05-22 14:00] LABS: Troponin I 0.026 ng/ml
--- NOTE | 2024-05-22 14:23 | CM ---
CM reviewed chart, patient Influenza A positive. Cardio and Pulm consulted. Call to patients room, no response. Call to son to complete initial assessment. Per son, Nakul, patient resides independently in a two story home, three steps to enter.
Patients daughter who lived with patient for 20 + years recently (about a month ago), helped care for patient. Patient typically independent without device, recently has been using a cane, has walker at home if needed. Son reports he and
his have been staying with patient. Son is POA. Patient has been receiving services through [facility], has been to [facility] in past. Patient PCP Lai Monzon, [facility]. CM discussed PT recommendations of VN
vs SNF. Son feels SNF would be beneficial to patient, will discuss with patient, would like to hold off on sending referrals until discussed with patient. CM will continue to follow for all discharge planning needs.
Plan; SNF likely vs home with VN
[2024-05-22] MEDS: TYLENOL 1000 MG PO (16:46)
[2024-05-22 17:10] LABS: Glucose - Point of Care 121 mg/dl (70-99)
[2024-05-22] MEDS: TAMIFLU 30 MG PO (20:17)
[2024-05-22 21:26] LABS: Glucose - Point of Care 181 mg/dl (70-99)
[2024-05-22] MEDS: ARICEPT 5 MG PO (22:42)
[2024-05-22] MEDS: CRESTOR 5 MG PO (22:42)
[2024-05-22 23:34] LABS: Troponin I 0.034 ng/ml
[2024-05-23 03:31] VITALS: BP 127/64
[2024-05-23 05:54] VITALS: BMI 16.2
[2024-05-23 06:00] VITALS: BMI 16.5
[2024-05-23] MEDS: TYLENOL 1000 MG PO (06:56)
[2024-05-23 06:57] LABS: Glucose - Point of Care 84 mg/dl (70-99)
[2024-05-23 07:01] VITALS: BP 144/59
[2024-05-23 07:09] LABS: Blood Urea Nitrogen 30 mg/dl (7-17); Calcium 7.8 mg/dl (8.4-10.2); Carbon Dioxide 29 mmol/L (22-30); Chloride 98 mmol/L (98-107); Estimated Creatinine Clearance 31 ml/min; Glucose 79 mg/dl (70-99); Potassium 3.6 mmol/L (3.5-5.1); Sodium 134 mmol/L (135-145); eGFR > 60.00
[2024-05-23] MEDS: ROCEPHIN 1000 MG IV (08:20)
[2024-05-23] MEDS: STERILE WATER FOR INJECTION 10 ML IV (08:20)
[2024-05-23] MEDS: HEPARIN 5000 UNITS SC ×2 (08:20→19:21)
[2024-05-23] MEDS: MUCINEX 600 MG PO ×2 (08:21→19:21)
[2024-05-23] MEDS: TAMIFLU 30 MG PO ×2 (08:21→19:48)
[2024-05-23] MEDS: VIBRAMYCIN 100 MG PO ×2 (08:21→19:21)
[2024-05-23] MEDS: ZOVIRAX 400 MG PO ×4 (08:21→20:10)
[2024-05-23] MEDS: ASPIR LOW (ENTERIC COATED) 81 MG PO (08:21)
[2024-05-23] MEDS: INDERAL 20 MG PO ×2 (08:22→19:22)
[2024-05-23] MEDS: RESTASIS 0.05% OPHTHALMIC EMULSION 1 DROPS BOTH EYES (08:22)
[2024-05-23] MEDS: LASIX 40 MG IV (08:22)
[2024-05-23] MEDS: FLUSH (NSS) 2 FLUSH IV ×3 (08:23→09:38)
--- NOTE | 2024-05-23 08:54 | W.PN.HOSP.TC ---
Addendum entered and electronically signed by Lai Angeles MD 05/23/24 16:06:
TSH 21.6, though free T4 is 1.40
will start low dose supplement
Addendum entered and electronically signed by Lai Angeles MD 05/23/24 09:19:
continue IV abx for tx of ?secondary PNA pending Pulm input
Original Note:
Today's Communication/Plan
-
Pulm consult
Lasix as per cardio
Assessment / Plan
Assessment / Plan
Acute HF - Unknown Type, most likely exacerbation associated with influenza
Acute Hypoxemic Respiratory Failure secondary to the above
wt 41-->38.3kg
- Patient with persistent dyspnea, LE edema, elevated BNP, etc consistent with CHF.
- CXR with more prominent pulm edema pattern compared to prior.
- Will defer whether to continue IV Lasix daily to cardiology
- Check Echo Friday
- Cardio evaluation appreciated for additional recommendations.
input appreciated
- ? other ILD such as rheumatoid lung etc as a baseline with acute influenza causing decompensation-a strong consideration
will request Pulm consult. ?Any role for steroids in this mixed aspect
05/22 CT lung: Small bilateral pleural effusions with associated compressive atelectasis. There are adjacent scattered tiny peripheral tree-in-bud/ground glass nodules throughout the dependent bilateral lower lobes, as well as within the right middle
lobe anteriorly.
There is diffuse bilateral bronchial wall thickening with mild cylindrical bronchiectasis. Mild centrilobular emphysema.
7 mm right upper lobe nodule (series 201, image 9). 4 mm left upper lobe subpleural nodule (image 18). 5 mm subpleural right lower lobe nodule (image 38). 7 mm right upper lobe nodule (image 26).
No pericardial effusions or pathologically enlarged noncalcified lymph nodes in the thorax. No pneumothorax.
Influenza A Pos
will start Tamiflu
Pt was not immunized
Abnormal Troponin - Suspect non-ischemic myocardial injury
ASCVD
- Likely secondary to CHF as noted above
- troponin 0.038-->0.039-->0.026-->0.034
- Continue current CV med regimen including ASA, statin, etc.
Permanent Atrial Fibrillation
- Stable. Continue propranolol.
- Not on chronic OAC.
- Monitor on telemetry.
Nausea
will add prn Zofran
Cachexia
Albumin 2.8 with severe supraclavicular muscle wasting
DM-II
- Stable. Follow glucose and cover with SSI if needed.
-6.0% A1C.
Rheumatoid Arthritis
- Stable. No acute joint pain, etc.
- On Remicade infusions as an outpatient.
- Continue prophylactic acyclovir.
DVT Prophylaxis: Subcut heparin
Call placed and discussed with sonNakul 05/23
time 15 minutes
Code Status: Full
total time 55 minutes
Anticipated Discharge: > 48 hours
Subjective/Interval History
-
Date of Service: May 23, 2024
Pt believes she is breathing a little better today
Objective Data
-
Labs:
Laboratory Results
05/23/24
05:47
Sodium 134 L
Potassium 3.6
Chloride 98
Carbon Dioxide 29
BUN 30 H
Creatinine 0.8
Glucose 79
Calcium 7.8 L
Vital Signs:
Vital Signs
Temp Pulse Resp BP Pulse Ox
97.5 F 64 18 144/59 97
05/23/24 07:01 05/23/24 07:01 05/23/24 07:01 05/23/24 07:01 05/23/24 07:01
I&O
05/22/24 05/23/24 05/24/24
05:59 06:59 06:59
Intake Total
Output Total
Balance
Review of Systems
-
Unable to obtain full review of systems at this time due to: Dementia (appears mild)
History Source: Patient and Coordinated Provider
Constitutional: Denies Fever
EENT: Reports No Symptoms Reported
Respiratory: Reports Cough and Trouble Breathing (better)
Cardiac: Denies Chest Pain
Abdomen/GI: Reports No Symptoms
Physical Exam
-
General: Well Developed, Respiratory Distress and Cachectic
HEENT: Normocephalic, Atraumatic and Moist Mucous Membranes
Respiratory: Wheezes (diffuse coarse wheeze, improved air movement, voice is stronger today) and Rales (diffuse interstitial rales)
Cardiac: Regular Rhythm and S1/S2
GI: Soft, Nontender and Nondistended
Musculoskeletal: No Clubbing, No Cyanosis and No Edema
[2024-05-23] MEDS: ZOFRAN 4 MG IV (09:36)
[2024-05-23 11:00] VITALS: BP 100/56
[2024-05-23 11:24] LABS: Glucose - Point of Care 97 mg/dl (70-99)
--- NOTE | 2024-05-23 11:30 | W.PN.CD ---
Today's Communication / Plan
-
-Continue Lasix 40 mg IV daily.
-Echocardiogram tomorrow.
Impression / Plan
-
84-year-old female with dementia, likely permanent atrial fibrillation (likely not on systemic anticoagulation secondary to fall/bleeding risk), PPM, hypertension, diabetes, previous CVA, rheumatoid arthritis, anxiety admitted with shortness of
breath; found to have influenza pneumonia. Cardiology consulted for concern for superimposed CHF; cardiac BNP 4770 and lower extremity edema. Patient is a poor historian.
CHF:
-Type unknown.
-Likely exacerbated by influenza A.
-Continue Lasix 40 mg IV daily.
-Echocardiogram tomorrow.
Influenza A pneumonia:
-Continue management as per primary team.
Likely permanent atrial fibrillation:
-Remains rate-controlled; intermittently V-paced.
-Likely not on systemic anticoagulation secondary to fall/bleeding risk.
-Continue propranolol.
PPM:
-Stable
RBBB:
-Remains clinically stable.
-Echocardiogram on Friday.
Hypertension:
-Blood pressure stable/controlled.
Hyperlipidemia:
-Continue rosuvastatin.
Mild troponin elevation:
-Likely acute nonischemic myocardial injury in the setting of CHF exacerbation and infection (influenza A).
Diabetes:
-Management as per primary team.
Physical Exam
Vital Signs/Labs
Vital Signs
Temp Pulse Resp BP Pulse Ox
97.0 F 67 18 100/56 96
05/23/24 11:00 05/23/24 11:00 05/23/24 11:00 05/23/24 11:00 05/23/24 11:00
05/22/24 05/23/24 05/24/24
05:59 06:59 06:59
Actual Weight
05/22/24 07:36
05/23/24 05:47
Triglycerides 101 mg/dl (10-149) 03/08/25 07:35
LDL Cholesterol, Calc 85 mg/dl 05/22/24 07:35
VLDL Cholesterol, Calc 20 mg/dl (0-30) 05/22/24 07:35
HDL Cholesterol 30 mg/dl 05/22/24 07:35
Free T4 1.40 ng/dl (0.78-2.19) 05/22/24 07:35
05/22/24 05/22/24
00:47 01:37
Ywz-V-Vylupzzifno Pept Cancelled 6548
LAB Results
05/22/24 05/22/24 05/22/24
00:47 01:37 07:35
Troponin I Cancelled 0.038 H* 0.039 H*
05/22/24 05/22/24
13:21 22:58
Troponin I 0.026 D 0.034
Physical Exam
Constitutional: No acute distress and Comfortable
EENT: Anicteric
Cardiovascular: Rhythm & rate is regular, Systolic murmur absent, Pedal edema present (1-2+ pitting) and S1S2 is normal
Respiratory: Respiratory effort normal, Wheeze Present and Crackles Present
GI: Soft
Neuro/Psych: Alert
Other: Skin (Warm, dry)
Data Reviewed
-
Date of Service: May 23, 2024
EKG: Tracing Personally Visualized and interpreted (Telemetry: Atrial fibrillation, V paced)
Labs: Labs Reviewed by me
[2024-05-23 15:00] VITALS: BP 122/67
--- NOTE | 2024-05-23 15:05 | CM ---
Met with son Kiran
PT rec SNF
discussed options of SNF
Referrals placed in [facility]
PLAN: SNF, pending bed availability when medically stable
--- NOTE | 2024-05-23 15:56 | CON.PUL ---
Consultation
Consultation Request
Date/Time Consultation Requested: 05/22/2024
Date/Time Consultation Performed: 05/23/2024
Medical History
-
Chief Complaint: Shortness of breath
History of Present Illness:
Patient is an 84y F with PMH significant for RA, hypertension and DM-II who presents to ED complaining of SOB. Patient reportedly has been sick with respiratory symptoms for more than a week. She was seen in the emergency room couple of weeks
ago and was discharged after she symptomatically felt better. Patient reports having significant expectoration and at times having hard time coughing up the phlegm. Patient reportedly had a telehealth visit and was started on doxycycline without
much improvement in her symptoms. Patient does not recall any sick contacts.
In view of worsening symptoms she presented back to the emergency room and was noted to have influenza A along with pulmonary edema and elevated BNP which led to hospitalization. Patient has known history of rheumatoid arthritis and pulmonary
service was consulted for concern for RA related interstitial lung disease.
Past Medical History: Reports Other
Additional Past Medical History:
Atrial Fibrillation
ASCVD
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
Rheumatoid Arthritis
DM-II
Past Surgical History: Reports Other
Additional Past Surgical History:
T&A
Hand Surgery
Back Surgery
Social History
Tobacco: Non-smoker
Alcohol: None
Drug: None
Allergies / Home Medications
Allergies
Allergy/AdvReac Type Severity Reaction Status Date / Time
No Known Allergies Allergy Verified 05/11/24 06:52
Home Medications
�Medication �Instructions �Recorded �Confirmed �Last Taken �Type
acyclovir 400 mg tablet 400 mg PO BID 04/27/22 05/22/24 07/20/23 22:00 History
cyclosporine 0.05 % eye drops in a 1 drp BOTH EYES DAILY 04/27/22 05/22/24 07/20/23 08:00 History
dropperette (Restasis)
denosumab 60 mg/mL subcutaneous 60 mg SC [id number] 04/27/22 05/22/24 07/16/23 14:00 History
syringe (Prolia)
mirabegron 50 mg tablet,extended 50 mg PO DAILY 04/27/22 05/22/24 07/20/23 22:00 History
release 24 hr (Myrbetriq)
rosuvastatin 5 mg tablet 5 mg PO HS 04/27/22 05/22/24 07/21/23 22:00 History
acetaminophen 500 mg tablet 1,000 mg PO TID PRN PAIN 07/23/23 05/22/24 07/23/23 04:00 History
infliximab 100 mg intravenous 100 mg IV Q8W 07/23/23 05/22/24 07/15/23 14:00 History
solution (Remicade)
insulin lispro 100 unit/mL 1 sliding scale dose SC DIRECTED 07/23/23 05/22/24 07/20/23 08:00 History
subcutaneous pen (Humalog KwikPen
(U-100) Insulin)
aspirin 81 mg tablet,delayed 81 mg PO DAILY #90 tabs 07/24/23 05/22/24 Unknown Rx
release
donepezil 5 mg tablet 5 mg PO HS 07/24/23 05/22/24 07/20/23 22:00 History
propranolol 20 mg tablet 20 mg PO BID 07/24/23 05/22/24 07/20/23 22:00 History
Review of Systems
-
Hematologic/Lymphatic: Other (All 14 systems reviewed and negative except as stated above in the history of present illness.)
Vitals / Labs / Diagnostic Testing
Vital Signs
Temp Pulse Resp BP Pulse Ox
97.2 F 73 18 122/67 98
05/23/24 15:00 05/23/24 15:00 05/23/24 15:00 05/23/24 15:00 05/23/24 15:00
Lab Data
05/22/24 07:36
05/23/24 05:47
Microbiology
05/22/24 04:05 Nasal Swab Influenza Types A & B (LARA) - Final
Influenza A Positive, NAAT
Diagnostic Testing:
Physical Exam
-
HEENT: Normocephalic and Moist Mucous Membranes
Cardiovascular: S1/S2
Respiratory: Clear and Non-Labored Respirations
GI: Soft and Non Distended
Neurology: Awake and Alert
Skin: Warm
General: Comfortable
Assessment
-
Very pleasant 84-year-old female with no known pulmonary disease and history of rheumatoid arthritis on Remicade was admitted to the hospital with shortness of breath and hypoxia. She was noted to be volume overloaded with BNP more than 4000 and
also tested positive for influenza A. Pulmonary consultation was requested for concern for rheumatoid arthritis related interstitial lung disease.
WBC count is normal at 7.3. Hemoglobin and platelets normal.
Procalcitonin significantly elevated at 3.31
Assessment and plan:
#1. Acute hypoxic respiratory failure.
-This is multifactorial and related to influenza A infection with concomitant pulmonary edema due to decompensated heart failure
-Patient has responded well to supplemental oxygen and diuresis well
-CT reviewed and not suggestive of RA-ILD. Presentation more suggestive of Pulmonary edema
#2. Influenza A related bronchitis/bronchiolitis.
-Patient is not vaccinated for influenza
-Continue Tamiflu
-Patient is immunocompromised being on Remicade and also has significantly elevated procalcitonin with areas of tree-in-bud on CT scan with bronchial wall thickening. Favor completing treatment for 5 days for CAP, currently on ceftriaxone and
doxycycline
-Check Sputum cultures
#3. Mild cylindrical Bronchiectasis. ?related to known h/o connective tissue disease/RA vs silent aspiration. Patient reports having trouble expectorating phlegm. No reported h/o coughing or chocking when eating.
-Speech therapy evaluation for any aspiration contributing to bronchiectasis and tree-in-bud changes on CAT scan
-Start Pulmonary toilet with 3% NS and Albuterol q12hrs
-Avoid inhaled steroids
#4. Pulmonary nodules, 4 to 7 mm. Patient has never smoked hence low risk for malignancy. More like infectious/inflammatory etiology
-This can be followed up as outpatient
other medical issues:
-Chronic RA, on Remicade
-Pulmonary edema with suspected CHF, work up in progress, ECHO pending, cardiology service on case
-A fib, not on AC
-HTN, HLD, DM
-Hypothyroidism with elevated TSH 21
Pulmonary team will follow
Total time spent on this consultation/encounter __60__ minutes which includes review of history, physical exam, medications, laboratory data, personal review of imaging, extensive review of outpatient records, discussion with care team and
respiratory therapy.
Data:
CT Chest 05/2024: Small bilateral pleural effusions with associated compressive atelectasis. There are adjacent scattered tiny peripheral tree-in-bud/ground glass nodules throughout the dependent bilateral lower lobes, as well as within the right
middle lobe anteriorly.
There is diffuse bilateral bronchial wall thickening with mild cylindrical bronchiectasis. Mild centrilobular emphysema.
7 mm right upper lobe nodule (series 201, image 9). 4 mm left upper lobe subpleural nodule (image 18). 5 mm subpleural right lower lobe nodule (image 38). 7 mm right upper lobe nodule (image 26).
No pericardial effusions or pathologically enlarged noncalcified lymph nodes in the thorax. No pneumothorax.
No thoracic aortic aneurysm. Severe coronary artery calcifications.
Visualized portion of the upper abdomen is unremarkable.
IMPRESSION:
1. Findings most in keeping with diffuse infectious/inflammatory bronchiolitis/bronchitis with probable inflammatory nodules, as detailed.
2. Small bilateral pleural effusions.
[2024-05-23] MEDS: SYNTHROID 50 MCG PO (17:49)
[2024-05-23 18:13] LABS: Glucose - Point of Care 128 mg/dl (70-99)
[2024-05-23 19:17] VITALS: BP 103/58
[2024-05-23] MEDS: ZOVIRAX PO ×2 (20:01→20:19)
[2024-05-23] MEDS: SODIUM CHLORIDE 3% FOR INHALATION INH (20:04)
[2024-05-23] MEDS: VENTOLIN NEBULES INH (20:04)
--- NOTE | 2024-05-23 20:10 | PTCARENOTE ---
Pt has been withdrawn, uncooperative and complaining of the light and ppl coming in the room. Pt was informed she was in the hospital, but she wants to be left alone. Pt was informed that she need to take night medications, and if she needs any
help staff will be there. She refuses any assistance and states, ' I want to be left alone and talk to the doctor'. Staff will monitor pt mood and cont w/ tx.
[2024-05-23] MEDS: CRESTOR PO (20:19)
[2024-05-23] MEDS: ARICEPT PO (20:19)
[2024-05-23 20:45] LABS: Glucose - Point of Care 269 mg/dl (70-99)
[2024-05-23 23:20] VITALS: BP 111/44
[2024-05-24 03:13] VITALS: BP 121/64
[2024-05-24] MEDS: SYNTHROID 50 MCG PO (06:23)
[2024-05-24 07:00] VITALS: BP 140/64
[2024-05-24 07:11] LABS: Glucose - Point of Care 87 mg/dl (70-99)
[2024-05-24] MEDS: SODIUM CHLORIDE 3% FOR INHALATION 1 VIAL INH ×2 (07:32→19:23)
[2024-05-24] MEDS: VENTOLIN NEBULES 2.5 MG INH ×2 (07:32→19:23)
[2024-05-24] MEDS: TAMIFLU 30 MG PO (08:02)
[2024-05-24] MEDS: ASPIR LOW (ENTERIC COATED) 81 MG PO (08:02)
[2024-05-24] MEDS: ZOVIRAX 400 MG PO ×4 (08:02→17:37)
[2024-05-24] MEDS: MUCINEX 600 MG PO ×2 (08:02→20:50)
[2024-05-24] MEDS: VIBRAMYCIN 100 MG PO ×2 (08:02→20:50)
[2024-05-24] MEDS: INDERAL 20 MG PO (08:02)
[2024-05-24] MEDS: RESTASIS 0.05% OPHTHALMIC EMULSION 1 DROPS BOTH EYES (08:03)
[2024-05-24] MEDS: HEPARIN 5000 UNITS SC (08:03)
[2024-05-24] MEDS: LASIX 40 MG IV (08:05)
[2024-05-24] MEDS: ROCEPHIN 1000 MG IV (08:06)
[2024-05-24] MEDS: STERILE WATER FOR INJECTION 10 ML IV (08:06)
--- NOTE | 2024-05-24 08:26 | W.PN.CD ---
Today's Communication / Plan
-
Continue Lasix 40 mg IV daily, likely move to PO on 05/25 after evaluation tomorrow AM
Echocardiogram today
EKG today
Impression / Plan
-
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
arthritis, anxiety admitted with shortness of breath; found to have influenza pneumonia. Cardiology consulted for concern for superimposed HF; cardiac BNP 4770 and lower extremity edema. Patient is a poor historian.
Acute on chronic HF, type uncertain
- Weight on 05/22/2024 41 kg, today 05/24/2024 38.3 kg
- exacerbated by influenza A.
- Continue Lasix 40 mg IV daily, likely move to PO on 05/25 after evaluation tomorrow AM
- Echocardiogram today
Mild troponin elevation, peak 0.039:
- Likely acute nonischemic myocardial injury in the setting of CHF exacerbation and infection (influenza A)
- Check echo and EKG today
Influenza A pneumonia
Suspected permanent atrial fibrillation:
- Good rate control, at home on low dose propranolol, continue
- Not on systemic anticoagulation secondary to fall/bleeding risk.
- [id number] (HF, HTN, age2, DM, CVA, vascular dz, female gender)
PPM, single chamber, presumably Rommel Sci
RBBB
Hypertension, stable
Hyperlipidemia, stable, tolerates rosuvastatin.
Diabetes
Dementia
Subjective: Pleasant, denies CP, says breathing is better
Physical Exam
Vital Signs/Labs
Vital Signs
Temp Pulse Resp BP Pulse Ox
98.1 F 64 14 140/64 95
05/24/24 07:00 05/24/24 08:05 05/24/24 07:39 05/24/24 08:05 05/24/24 07:39
05/23/24 05/24/24 05/25/24
06:59 06:59 06:59
Actual Weight
Triglycerides 101 mg/dl (10-149) 05/22/24 07:35
LDL Cholesterol, Calc 85 mg/dl 05/22/24 07:35
VLDL Cholesterol, Calc 20 mg/dl (0-30) 05/22/24 07:35
HDL Cholesterol 30 mg/dl 05/22/24 07:35
Free T4 1.40 ng/dl (0.78-2.19) 05/22/24 07:35
05/22/24 05/22/24
00:47 01:37
Ttn-A-Deicxufwsbm Pept Cancelled 3591
LAB Results
05/22/24 05/22/24 05/22/24
00:47 01:37 07:35
Troponin I Cancelled 0.038 H* 0.039 H*
05/22/24 05/22/24
13:21 22:58
Troponin I 0.026 D 0.034
Physical Exam
Constitutional: No acute distress and Other (thin/cachetic)
EENT: Anicteric
Cardiovascular: Rhythm/rate is irregular, Pedal edema present (1+ bilat) and S1S2 is normal
Respiratory: Respiratory effort normal, Crackles Absent and Rhonchi Present
GI: Soft and Distention absent
Neuro/Psych: Alert
Data Reviewed
-
Date of Service: May 24, 2024
EKG: Other (Tele AFib mostly in 60s)
[2024-05-24 08:37] LABS: % Immature Granulocytes 0.3 % (0-0.5); % Lymphocytes 24.6 % (20.5-51.1); % Monocytes 4.6 % (1.7-9.3); % Neutrophils 69.5 % (42.2-75.2); Absolute Eosinophils 0.1 10^3/uL (0-0.7); Absolute Lymphocytes 1.5 10^3/uL (1.2-3.4); Absolute Monocytes 0.3 10^3/uL (0.1-0.6); Absolute Neutrophils 4.3 10^3/uL (1.4-6.5); Hematocrit 39.1 % (37.0-47.0); Hemoglobin 12.9 g/dL (12.0-16.0); Mean Corpuscular Hgb 31.5 pg (27.0-31.0); Mean Corpuscular Volume 95.6 fL (81.0-99.0); Mean Platelet Volume 11.1 fL (7.4-10.4); Nucleated Red Blood Cells % 0 %; Platelet Count 340 10^3/uL (130-400); Red Blood Cell Count 4.09 10^6/uL (4.20-5.40); Red Cell Dist. Width 13.2 % (11.5-14.5); White Blood Cell Count 6.1 10^3/uL (4.8-10.8)
[2024-05-24 08:57] LABS: Blood Urea Nitrogen 32 mg/dl (7-17); Calcium 8.1 mg/dl (8.4-10.2); Carbon Dioxide 33 mmol/L (22-30); Chloride 95 mmol/L (98-107); Estimated Creatinine Clearance 31 ml/min; Glucose 97 mg/dl (70-99); Potassium 3.6 mmol/L (3.5-5.1); Sodium 135 mmol/L (135-145); eGFR > 60.00
--- NOTE | 2024-05-24 09:05 | PTOTSP ---
Speech Language Pathology
Pt seen for clinical bedside swallow evaluation. 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 RN entered room, and CUT OFF SAW GRADER passed on pt reports of difficulty swallowing,
and then pt denied this, talking about doctor's appointments. Do not suspect pt is an accurate historian.
P.O. trials of regular solids and thin liquids provided. Adequate mastication, bolus formation, and A-P transit noted with no oral residue. No overt signs of aspiration noted. Pt denied any globus sensation.
Recommend:
(1) Continue regular solids/thin liquids
(2) General aspiration precautions
(3) Meds as tolerated
(4) CUT OFF SAW GRADER to sign off. Please reconsult as indicated
--- NOTE | 2024-05-24 09:31 | W.PN.HOSP.TC ---
Today's Communication/Plan
-
see bold
Assessment / Plan
Assessment / Plan
Acute HF - Unknown Type, most likely exacerbation associated with influenza
Acute Hypoxemic Respiratory Failure secondary to the above
wt 41-->38.3kg
- Patient with persistent dyspnea, LE edema, elevated BNP, etc consistent with CHF.
- CXR with more prominent pulm edema pattern compared to prior.
- Appreciate cardiology input, continue Lasix 40 mg IV daily, echocardiogram requested
- ? other ILD such as rheumatoid lung etc as a baseline with acute influenza causing decompensation-a strong consideration
will request Pulm consult. ?Any role for steroids in this mixed aspect
05/22 CT lung: Small bilateral pleural effusions with associated compressive atelectasis. There are adjacent scattered tiny peripheral tree-in-bud/ground glass nodules throughout the dependent bilateral lower lobes, as well as within the right middle
lobe anteriorly.
There is diffuse bilateral bronchial wall thickening with mild cylindrical bronchiectasis. Mild centrilobular emphysema.
7 mm right upper lobe nodule (series 201, image 9). 4 mm left upper lobe subpleural nodule (image 18). 5 mm subpleural right lower lobe nodule (image 38). 7 mm right upper lobe nodule (image 26).
No pericardial effusions or pathologically enlarged noncalcified lymph nodes in the thorax. No pneumothorax.
Influenza A Pos
-Not immunized
-Continue Tamiflu, continue antibiotics for bacterial superinfection coverage
Abnormal Troponin - Suspect non-ischemic myocardial injury
ASCVD
- Likely secondary to CHF as noted above
- Troponin 0.038-->0.039-->0.026-->0.034
- Continue current CV med regimen including ASA, statin, etc.
Permanent Atrial Fibrillation
- Stable. Continue propranolol.
- Not on chronic OAC.
- Monitor on telemetry.
Nausea
prn Zofran
Cachexia
Albumin 2.8 with severe supraclavicular muscle wasting
DM-II
- Stable. Follow glucose and cover with SSI if needed.
-6.0% A1C.
Rheumatoid Arthritis
- Stable. No acute joint pain, etc.
- On Remicade infusions as an outpatient.
- Continue prophylactic acyclovir.
DVT Prophylaxis: Subcut heparin
Full Code
Total time spent to see the patient on the floor, examine the patient, review data and lab results, discuss treatment plan with patient, nursing staff around 45 minutes.
Physical Exam
General: Frail, elderly, no acute distress
HEENT: Normocephalic, Atraumatic, EOMI, MMM
Respiratory: Clear to Auscultation bilaterally
Cardiac: Normal S1/S2, Regular Rate and Rhythm
GI: Soft, Nontender, Nondistended, Normal Bowel Sounds
Extremities: No Clubbing, Cyanosis, or Edema
Neuro: Nonfocal/Grossly Intact
Psych: Calm, Cooperative
Anticipated Discharge: 24 - 48 hours
Subjective/Interval History
-
Date of Service: May 24, 2024
Patient denies chest pain, shortness of breath, palpitations. No fever, no vomiting. No coughing.
Objective Data
-
Labs:
Laboratory Results
05/24/24
07:22
WBC 6.1
Hgb 12.9
Hct 39.1
Plt Count 340
Sodium 135
Potassium 3.6
Chloride 95 L
Carbon Dioxide 33 H
BUN 32 H
Creatinine 0.8
Glucose 97
Calcium 8.1 L
Vital Signs:
Vital Signs
Temp Pulse Resp BP Pulse Ox
98.1 F 64 14 140/64 95
05/24/24 07:00 05/24/24 08:05 05/24/24 07:39 05/24/24 08:05 05/24/24 07:39
I&O
05/23/24 05/24/24 05/25/24
06:59 06:59 06:59
Intake Total 640 / 640
Output Total
Balance 640 / 640
--- NOTE | 2024-05-24 09:45 | W.PN.PUL.V3 ---
Today's Communication / Plan
-
Wean oxygen.
Empiric antibiotics
Tamiflu.
Aspiration precautions
Assessment
-
Very pleasant 84-year-old female with no known pulmonary disease and history of rheumatoid arthritis on Remicade was admitted to the hospital with shortness of breath and hypoxia. She was noted to be volume overloaded with BNP more than 4000 and
also tested positive for influenza A. Pulmonary consultation was requested for concern for rheumatoid arthritis related interstitial lung disease.
Influenza.
Cylindrical bronchiectasis.
Cachexia.
Heart failure with unknown EF.
Permanent atrial fibrillation
WBC count is normal at 7.3. Hemoglobin and platelets normal.
Procalcitonin significantly elevated at 3.31
Assessment and plan:
Respiratory decompensation, likely due to underlying lung disease-centrilobular emphysema/bronchiectasis/possible ILD, though less likely. In addition to CHF.
Supplemental oxygen.
Aspiration precautions.
CT chest summarized below..
Cylindrical bronchiectasis related to history of connective tissue disease/rheumatoid arthritis versus silent aspiration.
Speech therapy evaluation.
Saline nebulizers.
Albuterol as well.
Avoiding inhaled steroids
Outpatient radiographic follow-up of pulmonary nodules
Diuresis as tolerated
Monitor weight, intake, output, renal function and lower extremity edema.
Replacement electrolytes as tolerated.
Cardiology following-correspondence reviewed.
Echocardiogram pending.
Atrial fibrillation-Rate control.
Not on chronic anticoagulation
Cultures reviewed.
Patient not vaccination.
Influenza a positive
Tamiflu
Empiric antibiotics-ceftriaxone and doxycycline
Follow radiographically
Immunocompromised on Remicade.
Monitor blood sugar.
Insulin supplementation is needed.
DVT prophylaxis-on subcutaneous heparin.
Outpatient pulmonary follow-up
Data:
CT Chest 05/2024: Small bilateral pleural effusions with associated compressive atelectasis. There are adjacent scattered tiny peripheral tree-in-bud/ground glass nodules throughout the dependent bilateral lower lobes, as well as within the right
middle lobe anteriorly.
There is diffuse bilateral bronchial wall thickening with mild cylindrical bronchiectasis. Mild centrilobular emphysema.
7 mm right upper lobe nodule (series 201, image 9). 4 mm left upper lobe subpleural nodule (image 18). 5 mm subpleural right lower lobe nodule (image 38). 7 mm right upper lobe nodule (image 26).
No pericardial effusions or pathologically enlarged noncalcified lymph nodes in the thorax. No pneumothorax.
No thoracic aortic aneurysm. Severe coronary artery calcifications.
Visualized portion of the upper abdomen is unremarkable.
IMPRESSION:
1. Findings most in keeping with diffuse infectious/inflammatory bronchiolitis/bronchitis with probable inflammatory nodules, as detailed.
2. Small bilateral pleural effusions.
Subjective Data
-
Date of Service:
Date of Service: May 24, 2024
Chief Complaint: Pulmonary Follow Up and Dyspnea Follow Up
Subjective:
Denies any shortness of breath at rest, minimal chest congestion, minimal productive cough, no hemoptysis, pleurisy, abdominal pain or leg swelling
Review of Systems
General: Other (per HPI)
Objective Data
Data Reviewed
Vital Signs / I&O:
Vital Signs
Temp Pulse Resp BP Pulse Ox
98.1 F 64 14 140/64 95
05/24/24 07:00 05/24/24 08:05 05/24/24 07:39 05/24/24 08:05 05/24/24 07:39
Intake and Output
05/23/24 05/24/24 05/25/24
06:59 06:59 06:59
Intake Total 640 / 640
Output Total
Balance 640 / 640
SaO2: 95
Nasal Cannula flow liters per minute: 5
Physical Exam
General: Respiratory Distress (n), Comfortable and Other ( temporal wasting)
HEENT: Normocephalic, Anicteric and Moist Mucous Membranes
Cardiovascular: Regular Rhythm
Respiratory: Wheeze (n), Crackles ( few basilar), Rhonchi (n), Non-Labored Respirations, Accessory Resp Muscle Use (n) and Stridor
GI: Soft, Non Distended and Non Tender
Neurology: Awake, Alert and No Motor Deficits
Skin: Warm, Good Color, Cyanosis (n), Jaundice (n) and Rash (n)
Labs/Micro/Reports
Lab Data
05/24/24 07:22
05/24/24 07:22
Microbiology
05/22/24 04:05 Nasal Swab Influenza Types A & B (LARA) - Final
Influenza A Positive, NAAT
[2024-05-24 11:00] VITALS: BP 117/48
[2024-05-24 12:19] LABS: Glucose - Point of Care 123 mg/dl (70-99)
[2024-05-24 14:25] VITALS: BMI 16.1
--- NOTE | 2024-05-24 14:47 | CM ---
Spoke with son Kiran
Additional referrals added in [facility]
Will need ins auth
PLAN: SNF, pending bed availability once medically stable, will need to obtain insurance auth
[2024-05-24 14:58] VITALS: BMI 16.1
[2024-05-24 15:30] VITALS: BP 145/60
[2024-05-24 17:23] LABS: Glucose - Point of Care 83 mg/dl (70-99)
[2024-05-24] MEDS: INDERAL PO (20:56)
[2024-05-24] MEDS: HEPARIN SC ×2 (20:57→21:22)
[2024-05-24] MEDS: TAMIFLU PO (21:24)
[2024-05-24 21:57] LABS: Glucose - Point of Care 104 mg/dl (70-99)
[2024-05-24] MEDS: CRESTOR PO (23:33)
[2024-05-24] MEDS: ARICEPT PO (23:33)
[2024-05-24] MEDS: ZOVIRAX PO (23:33)
[2024-05-25 03:30] VITALS: BP 124/82
[2024-05-25 06:32] VITALS: BMI 16.1
[2024-05-25 06:32] LABS: Glucose - Point of Care 90 mg/dl (70-99)
[2024-05-25] MEDS: SYNTHROID 50 MCG PO (06:48)
[2024-05-25 06:51] VITALS: BP 156/67
[2024-05-25 07:07] LABS: Glucose - Point of Care 93 mg/dl (70-99)
[2024-05-25 07:25] LABS: Blood Urea Nitrogen 31 mg/dl (7-17); Carbon Dioxide 30 mmol/L (22-30); Chloride 98 mmol/L (98-107); Estimated Creatinine Clearance 30 ml/min; Glucose 91 mg/dl (70-99); Magnesium 1.7 mg/dl (1.6-2.3); Potassium 3.5 mmol/L (3.5-5.1); Sodium 135 mmol/L (135-145); eGFR > 60.00
[2024-05-25] MEDS: VENTOLIN NEBULES 2.5 MG INH ×2 (07:28→19:02)
[2024-05-25] MEDS: SODIUM CHLORIDE 3% FOR INHALATION 1 VIAL INH ×2 (07:28→19:02)
[2024-05-25] MEDS: ZOVIRAX 400 MG PO ×3 (07:56→21:21)
[2024-05-25] MEDS: TAMIFLU 30 MG PO ×2 (07:57→21:06)
[2024-05-25] MEDS: ASPIR LOW (ENTERIC COATED) 81 MG PO (07:57)
[2024-05-25] MEDS: RESTASIS 0.05% OPHTHALMIC EMULSION 1 DROPS BOTH EYES (07:57)
[2024-05-25] MEDS: MUCINEX 600 MG PO ×2 (08:05→21:06)
[2024-05-25] MEDS: STERILE WATER FOR INJECTION 10 ML IV (08:05)
[2024-05-25] MEDS: INDERAL 20 MG PO ×2 (08:05→21:06)
[2024-05-25] MEDS: VIBRAMYCIN 100 MG PO ×2 (08:06→21:06)
[2024-05-25] MEDS: ROCEPHIN 1000 MG IV (08:06)
[2024-05-25] MEDS: LASIX 40 MG IV (08:06)
[2024-05-25] MEDS: HEPARIN SC (08:06)
[2024-05-25] MEDS: ZOFRAN 4 MG IV ×2 (08:08→22:20)
--- NOTE | 2024-05-25 08:10 | W.PN.CD ---
Today's Communication / Plan
-
Switch to PO Lasix
Discontinue telemetry
Cardiology will sign off at this time. Please call with any additional questions or concerns. She will schedule follow-up with OP cardiolgist.
Impression / Plan
-
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
arthritis, anxiety admitted with shortness of breath; found to have influenza pneumonia. Cardiology consulted for concern for superimposed HF; cardiac BNP 4770 and lower extremity edema. Patient is a poor historian.
Acute on chronic HFpEF
- TTE 05/24/24: LVEF 60-65%, stage III DD, normal RV, severe MR, mild/mod , mild AR, mild TR, PASP 25-30 mmHg
- Weight stable this admission (41 kg on 05/22 but this was reported, not scale)
- exacerbated by influenza A.
- Suspect she is euvolemic given normal PASP and RAP on echo, plus weight is lowest at this facility
- Switch lasix to 40mg PO daily.
Suspected permanent atrial fibrillation:
- Good rate control, at home on low dose propranolol, continue
- Not on systemic anticoagulation secondary to fall/bleeding risk.
- [id number] (HF, HTN, age2, DM, CVA, vascular dz, female gender)
- Discontinue telemetry
Mixed valvular disease
- Recent TTE with severe MR, mild/mod , mild AR, and mild TR
- Hard to tell if she is symptomatic given concomitant flu
- OP cardiology follow-up
Mild troponin elevation, peak 0.039:
- Likely acute nonischemic myocardial injury in the setting of CHF exacerbation and infection (influenza A)
Influenza A pneumonia
- Tamiflu
- Conservative management as per primary team
PPM, single chamber, presumably Rommel Sci
RBBB
Hypertension, stable
Hyperlipidemia, stable, tolerates rosuvastatin.
Diabetes
Dementia
Subjective: No CV complaints.
Physical Exam
Vital Signs/Labs
Vital Signs
Temp Pulse Resp BP Pulse Ox
98.7 F 77 18 156/67 94
05/25/24 06:51 05/25/24 07:31 05/25/24 07:31 05/25/24 06:51 05/25/24 07:31
05/24/24 05/25/24 05/26/24
06:59 06:59 06:59
Actual Weight 37.421 kg
05/24/24 07:22
05/25/24 05:42
Magnesium 1.7 mg/dl (1.6-2.3) 05/25/24 05:42
Triglycerides 101 mg/dl (10-149) 05/22/24 07:35
LDL Cholesterol, Calc 85 mg/dl 05/22/24 07:35
VLDL Cholesterol, Calc 20 mg/dl (0-30) 05/22/24 07:35
HDL Cholesterol 30 mg/dl 05/22/24 07:35
Free T4 1.40 ng/dl (0.78-2.19) 05/22/24 07:35
05/22/24 05/22/24
00:47 01:37
Hfl-P-Tullejeohjz Pept Cancelled 2293
LAB Results
05/22/24 05/22/24 05/22/24
07:35 13:21 22:58
Troponin I 0.039 H* 0.026 D 0.034
Physical Exam
Constitutional: No acute distress and Comfortable
Cardiovascular: Rhythm/rate is irregular and Pedal edema present
Respiratory: Respiratory effort normal and Crackles Present
Data Reviewed
-
Date of Service: May 25, 2024
Medical Decision Making: Reviewed Test Results, Independent Historian Assessment, Test Interpretation and Review of Case with other Provider
EKG: Tracing Personally Visualized and interpreted
Echo: Report Reviewed by me
X-Ray/CT/US/MRI/NUC/PET: Report Reviewed by me
Labs: Labs Reviewed by me
[2024-05-25] MEDS: LASIX PO (08:52)
--- NOTE | 2024-05-25 08:52 | W.PN.HOSP.TC ---
Today's Communication/Plan
-
Discharge to short-term rehab when authorization has been obtained
Assessment / Plan
Assessment / Plan
Acute HF with a preserved ejection fraction
Acute Hypoxemic Respiratory Failure secondary to the above
wt 41-->38.3kg
- Patient with persistent dyspnea, LE edema, elevated BNP, etc consistent with CHF.
- CXR with more prominent pulm edema pattern compared to prior.
- Appreciate cardiology input, resolved on Lasix 40 mg IV daily, cardiology recommends discharge on Lasix 40 mg daily, now on RA. Pulm also following
- Echo EF 60-65%, stage 3 DD, dilated L/R atrium, severe MR, mild-mod
05/22 CT lung: Small bilateral pleural effusions with associated compressive atelectasis. There are adjacent scattered tiny peripheral tree-in-bud/ground glass nodules throughout the dependent bilateral lower lobes, as well as within the right middle
lobe anteriorly.
There is diffuse bilateral bronchial wall thickening with mild cylindrical bronchiectasis. Mild centrilobular emphysema.
7 mm right upper lobe nodule (series 201, image 9). 4 mm left upper lobe subpleural nodule (image 18). 5 mm subpleural right lower lobe nodule (image 38). 7 mm right upper lobe nodule (image 26).
No pericardial effusions or pathologically enlarged noncalcified lymph nodes in the thorax. No pneumothorax.
Influenza A Pos
-Not immunized
-Continue Tamiflu for 5 days, continue doxy for 5 days for bacterial superinfection coverage, on rocephin day 3 - will stop
Abnormal Troponin - Suspect non-ischemic myocardial injury
ASCVD
- Likely secondary to CHF as noted above
- Troponin 0.038-->0.039-->0.026-->0.034
- Continue current CV med regimen including ASA, statin, etc.
Permanent Atrial Fibrillation
- Stable. Continue propranolol.
- Not on chronic OAC.
- Monitor on telemetry.
Nausea
prn Zofran
Cachexia
Severe Malnutrition
- Albumin 2.8 with severe supraclavicular muscle wasting
- Encourage oral intake, protein supp
DM-II
- Stable. Follow glucose and cover with SSI if needed.
-6.0% A1C.
Rheumatoid Arthritis
- Stable. No acute joint pain, etc.
- On Remicade infusions as an outpatient.
- Continue prophylactic acyclovir.
DVT Prophylaxis: Subcut heparin
Full Code
Total time spent to see the patient on the floor, examine the patient, review data and lab results, discuss treatment plan with patient, nursing staff around 45 minutes.
Updated son on phone 05/25
Physical Exam
General: Frail, elderly, no acute distress
HEENT: Normocephalic, Atraumatic, EOMI, MMM
Respiratory: Clear to Auscultation bilaterally
Cardiac: Normal S1/S2, Regular Rate and Rhythm
GI: Soft, Nontender, Nondistended, Normal Bowel Sounds
Extremities: No Clubbing, Cyanosis, or Edema
Neuro: Nonfocal/Grossly Intact
Psych: Calm, Cooperative
Anticipated Discharge: Within 24 hours
Subjective/Interval History
-
Date of Service: May 25, 2024
Reports nausea and mild SOB. No fever, no vomiting.
Objective Data
-
Labs:
Laboratory Results
05/25/24
05:42
Sodium 135
Potassium 3.5
Chloride 98
Carbon Dioxide 30
BUN 31 H
Creatinine 0.8
Glucose 91
Calcium 8.0 L
Vital Signs:
Vital Signs
Temp Pulse Resp BP Pulse Ox
98.7 F 63 18 156/67 94
05/25/24 06:51 05/25/24 08:05 05/25/24 07:31 05/25/24 08:05 03/11/25 07:31
I&O
05/24/24 05/25/24 05/26/24
06:59 06:59 06:59
Intake Total 640 / 640 480 / 480
Balance 640 / 640 480 / 480
--- NOTE | 2024-05-25 10:03 | W.PN.PUL.V3 ---
Today's Communication / Plan
-
finite course of antibiotics and antivirals.
Increase activity.
Outpatient pulmonary follow-up
Pulmonary will sign off-. Please call with questions
Assessment
-
Very pleasant 84-year-old female with no known pulmonary disease and history of rheumatoid arthritis on Remicade was admitted to the hospital with shortness of breath and hypoxia. She was noted to be volume overloaded with BNP more than 4000 and
also tested positive for influenza A. Pulmonary consultation was requested for concern for rheumatoid arthritis related interstitial lung disease.
Influenza.
Cylindrical bronchiectasis.
Cachexia.
Heart failure with unknown EF.
Permanent atrial fibrillation
WBC count is normal at 7.3. Hemoglobin and platelets normal.
Procalcitonin significantly elevated at 3.31
Assessment and plan:
Respiratory decompensation, likely due to underlying lung disease-centrilobular emphysema/bronchiectasis/possible ILD, though less likely. In addition to CHF.
Supplemental oxygen--currently on room air-94% saturation
Aspiration precautions.
CT chest summarized below
Cylindrical bronchiectasis related to history of connective tissue disease/rheumatoid arthritis versus silent aspiration.
Speech therapy following-correspondence reviewed-regular solids and thin liquids
Saline nebulizers
Albuterol as well
Avoiding inhaled steroids
Outpatient radiographic follow-up of pulmonary nodules
Diuresis can continue as tolerated
Monitor weight, intake, output, renal function and lower extremity edema.
Replacement electrolytes as tolerated.
Cardiology following-correspondence reviewed.
Echocardiogram 05/24/24-EF 60-65%, stage III diastolic dysfunction, severe mitral regurgitation, moderate aortic stenosis-ADA 1.3 cm, PA systolic 25-30
Atrial fibrillation-Rate control.
Not on chronic anticoagulation
Cultures reviewed.
Patient not vaccination.
Influenza a positive
Tamiflu-finite course
Empiric antibiotics-ceftriaxone and doxycycline-finite course
Follow radiographically if needed
Immunocompromised on Remicade.
Monitor blood sugar.
Insulin supplementation is needed.
DVT prophylaxis-on subcutaneous heparin..
Stable respiratory status-pulmonary will sign off-. Please call with questions
Outpatient pulmonary follow-up
Data:
CT Chest 05/2024: Small bilateral pleural effusions with associated compressive atelectasis. There are adjacent scattered tiny peripheral tree-in-bud/ground glass nodules throughout the dependent bilateral lower lobes, as well as within the right
middle lobe anteriorly.
There is diffuse bilateral bronchial wall thickening with mild cylindrical bronchiectasis. Mild centrilobular emphysema.
7 mm right upper lobe nodule (series 201, image 9). 4 mm left upper lobe subpleural nodule (image 18). 5 mm subpleural right lower lobe nodule (image 38). 7 mm right upper lobe nodule (image 26).
No pericardial effusions or pathologically enlarged noncalcified lymph nodes in the thorax. No pneumothorax.
No thoracic aortic aneurysm. Severe coronary artery calcifications.
Visualized portion of the upper abdomen is unremarkable.
IMPRESSION:
1. Findings most in keeping with diffuse infectious/inflammatory bronchiolitis/bronchitis with probable inflammatory nodules, as detailed.
2. Small bilateral pleural effusions.
Subjective Data
-
Date of Service:
Date of Service: May 25, 2024
Chief Complaint: Pulmonary Follow Up and Dyspnea Follow Up
Subjective:
Denies any shortness of breath, complains of buttocks pain, no chest congestion, productive cough or chest pain
Review of Systems
General: Other ( per HPI)
Objective Data
Data Reviewed
Vital Signs / I&O:
Vital Signs
Temp Pulse Resp BP Pulse Ox
98.7 F 63 18 156/67 94
05/25/24 06:51 05/25/24 08:05 05/25/24 07:31 05/25/24 08:05 05/25/24 09:50
Intake and Output
05/24/24 05/25/24 05/26/24
06:59 06:59 06:59
Intake Total 640 / 640 480 / 480
Balance 640 / 640 480 / 480
SaO2: 94
Nasal Cannula flow liters per minute: 5
Physical Exam
General: Respiratory Distress (n), Comfortable and Other ( temporal wasting)
HEENT: Normocephalic, Anicteric and Moist Mucous Membranes
Cardiovascular: Regular Rhythm
Respiratory: Wheeze (n), Crackles ( few basilar), Rhonchi (n), Non-Labored Respirations, Accessory Resp Muscle Use (n) and Stridor
GI: Soft, Non Distended and Non Tender
Neurology: Awake, Alert and No Motor Deficits
Skin: Warm, Good Color, Cyanosis (n), Jaundice (n) and Rash (n)
Labs/Micro/Reports
Lab Data
05/24/24 07:22
05/25/24 05:42
Microbiology
05/22/24 04:05 Nasal Swab Influenza Types A & B (LARA) - Final
Influenza A Positive, NAAT
[2024-05-25] MEDS: ZOVIRAX PO ×2 (10:28→17:11)
[2024-05-25 11:35] LABS: Glucose - Point of Care 127 mg/dl (70-99)
--- NOTE | 2024-05-25 11:47 | PN.CDI ---
CDI
- -
CDI:
Physician Documentation Request
Admit Date: 05/22/24 04:37
Dear Doctor Do,
05/24 notes and assessment 'underweight . Review of records shows weight of 98 lbs from February external medical summary; 82 lbs 8 ox on 05-24-24, reflecting a loss of 15.5 lbs (15.8% wt change ~ 3 months)-significant. Due to weight loss
and observation of multiple site fat/muscle loss, pt meeting criteria for severe protein/calorie malnutrition (ASPEN/AND guidelines, chronic illness)'
Subcutaneous loss over rib cage severe, orbital severe, Muscle loss over clavicle- severe, buccal-severe, temporal- severe
Based on the above information and your assessment, which of the following most accurately represents the patient's nutritional status?
Severe Malnutrition
Other (please specify)
[place] Criteria (ACP Hospitalist 2017)
2 or more criteria must be present for either
non severe or severe malnutrition
Note that the criteria differs related to the
presence of an acute or chronic illness
Acute Illness Chronic Illness
Energy Intake Non Severe: <75% for >7 days Non Severe: <75% for >1 month
Severe: <50% for >5 days Severe: <75% for >1 month
Weight Loss Non Severe: 1-2% over 1 week Non Severe: 5% over 1 month
5% over 1 month 7.5% over 3 months
7.5% over 3 months 10% over 6 months
1 year N/A 20% over 1 year
Severe: >2% over 1 week Severe: >5% over 1 month
>5% over 1 month >7.5% over 3 months
>7.5% over 3 months >10% over 6 months
1 year N/A >20% over 1 year
Body Fat Non Severe: Mild Decrease Non Severe: Mild Loss
Severe: Moderate Decrease Severe: Severe Loss
Muscle Mass Non Severe: Mild Decrease Non Severe: Mild Loss
Severe: Moderate Decrease Severe: Severe Loss
Fluid Accumulation Non Severe: Mild Accumulation Non Severe: Mild Accumulation
Severe: Moderate to severe Severe: Moderate to severe
accumulation accumulation
Reduced Agency Legal Counsel Strength Non Severe: N/A Non Severe: N/A
Severe: Measurably reduced Severe: Measurably reduced
Use of terms such as suspected, likely, concern for, or probable (associated with a specific diagnosis that is being evaluated, monitored, or treated as if it exists) are acceptable and can be coded in the inpatient setting, when documented at the
time of discharge.
Thank you,
Ambar Rea RN, BSN
CDI Specialist
tiger text
Please use your independent medical judgment in providing your response.
--- NOTE | 2024-05-25 12:04 | CM ---
Addendum entered by Renea King 05/25/24 14:14:
CM office scanned clinicals into [employer]
Awaiting insurance approval for [facility]
Addendum entered by Renea King 05/25/24 12:42:
Initiated [employer] ins auth via [employer]
Pended auth #: [id number]
Faxed clinicals to [phone]
Await approval for [facility]
Original Note:
Patient seen at bedside.
Natalia from [facility] accepted & bed available
tt hospitalist - SNF request hold remicade/Prolia until after rehab
CM to initiate auth with [employer]. via [employer]
[facility] NPI #[id number]
Dr. Kem Granger NPI #: [id number]
spoke with son & agreeable to to [facility], patient agreeable
PLAN: [facility], once ins auth approved
Report #: [phone]
Fax #: [phone]
transportation forms on chart
[2024-05-25 13:10] VITALS: BP 118/60; PULSE 67; O2SAT 95
[2024-05-25 15:02] VITALS: BP 131/61
[2024-05-25 16:47] LABS: Glucose - Point of Care 96 mg/dl (70-99)
--- NOTE | 2024-05-25 17:11 | PTCARENOTE ---
Pt displaying s/s of depression, refusing multiple medications this day, clearly down, made aware. No new orders at this time.
[2024-05-25] MEDS: HEPARIN 5000 UNITS SC (21:05)
[2024-05-25] MEDS: CRESTOR 5 MG PO (21:06)
[2024-05-25] MEDS: ARICEPT 5 MG PO (21:06)
[2024-05-25 21:18] LABS: Glucose - Point of Care 144 mg/dl (70-99)
[2024-05-25] MEDS: TYLENOL 1000 MG PO (22:20)
[2024-05-25 23:10] VITALS: BP 157/67
[2024-05-26] MEDS: STERILE WATER FOR INJECTION IV (05:27)
[2024-05-26] MEDS: SYNTHROID 50 MCG PO (05:33)
[2024-05-26 06:19] VITALS: BMI 15.6
[2024-05-26 07:00] VITALS: BP 144/55
[2024-05-26 07:05] LABS: Glucose - Point of Care 101 mg/dl (70-99)
[2024-05-26] MEDS: VENTOLIN NEBULES 2.5 MG INH ×2 (08:11→20:48)
[2024-05-26] MEDS: SODIUM CHLORIDE 3% FOR INHALATION 1 VIAL INH ×2 (08:11→20:47)
--- NOTE | 2024-05-26 08:16 | CM ---
Addendum entered by Renea King 05/26/24 12:33:
tt from hospitalist
patient will discharge to [facility] tomorrow
Notified Natalia at [facility], notified son Kiran
PLAN: Discharge tomorrow to [facility]
Report #: [id number] - 4th fl
Fax #: [phone]
transportation forms on chart
Original Note:
Spoke with Violet from [employer]
Auth Approved for [facility]
Approval cert #: [id number]
Start 05/26 to 05/30, NRD 05/31
Call with updates to [phone]
Called Natalia at [facility] and ins approval info given to her
tt hospitalist, called and left message with paola Beck [phone]
PLAN: [facility]
Report #: [id number] - 4th fl
Fax #: [phone]
transportation forms on chart
[2024-05-26 08:37] LABS: Procalcitonin 0.39 ng/ml (0.0-0.25)
[2024-05-26 08:41] LABS: Blood Urea Nitrogen 31 mg/dl (7-17); Carbon Dioxide 31 mmol/L (22-30); Chloride 98 mmol/L (98-107); Estimated Creatinine Clearance 29 ml/min; Glucose 109 mg/dl (70-99); Potassium 3.3 mmol/L (3.5-5.1); Sodium 136 mmol/L (135-145); eGFR > 60.00
--- NOTE | 2024-05-26 08:42 | PN.CDI ---
CDI
- -
CDI:
Physician Documentation Request
Admit Date: 05/22/24 04:37
Dear Doctor Do,
Patient presented to the ED with breathing difficulties. Patient was positive for influenza A
Cardiology progress notes include a diagnosis of 'Influenza A pneumonia'
Pulmonology states ' Influenza A related bronchitis/bronchiolitis' and later progress notes 'Cylindrical bronchiectasis'
Hospitalist progress notes state 'Influenza A Pos- continue Tamiflu, continue antibiotic for bacterial superinfection coverage'
Please clarify the diagnosis associated with the antibiotic use
pneumonia (please clarify type if known or suspected)
bronchiectasis
Other
Use of terms such as suspected, likely, concern for, or probable (associated with a specific diagnosis that is being evaluated, monitored, or treated as if it exists) are acceptable and can be coded in the inpatient setting, when documented at the
time of discharge.
Thank you,
Ambar Rea RN, BSN
CDI Specialist
tiger text
Please use your independent medical judgment in providing your response.
[2024-05-26] MEDS: ZOVIRAX 400 MG PO ×2 (08:53→20:36)
[2024-05-26] MEDS: ASPIR LOW (ENTERIC COATED) 81 MG PO (08:53)
[2024-05-26] MEDS: TAMIFLU 30 MG PO ×2 (08:53→20:36)
[2024-05-26] MEDS: INDERAL 20 MG PO ×2 (08:53→20:36)
[2024-05-26] MEDS: VIBRAMYCIN 100 MG PO ×2 (08:53→20:36)
[2024-05-26] MEDS: LASIX 40 MG PO (08:53)
[2024-05-26] MEDS: MUCINEX 600 MG PO ×2 (08:53→20:36)
[2024-05-26] MEDS: HEPARIN 5000 UNITS SC ×2 (08:55→20:32)
--- NOTE | 2024-05-26 09:02 | W.PN.HOSP.TC ---
Today's Communication/Plan
-
Cancel discharge
Consult palliative care
Assessment / Plan
Assessment / Plan
Cachexia
Severe Malnutrition
Mild dementia
Bereavement with recent loss of daughter
- Albumin 2.8 with severe supraclavicular muscle wasting
- Encourage oral intake, protein supp
- Consult palliative care. Son understands patient will need long-term placement
Acute HF with a preserved ejection fraction
Acute Hypoxemic Respiratory Failure secondary to the above
wt 41-->38.3kg
- Patient with persistent dyspnea, LE edema, elevated BNP, etc consistent with CHF.
- CXR with more prominent pulm edema pattern compared to prior.
- Appreciate cardiology input, resolved on Lasix 40 mg IV daily, cardiology recommends discharge on Lasix 40 mg daily, now on RA. Pulm also following
- Echo EF 60-65%, stage 3 DD, dilated L/R atrium, severe MR, mild-mod
05/22 CT lung: Small bilateral pleural effusions with associated compressive atelectasis. There are adjacent scattered tiny peripheral tree-in-bud/ground glass nodules throughout the dependent bilateral lower lobes, as well as within the right middle
lobe anteriorly.
There is diffuse bilateral bronchial wall thickening with mild cylindrical bronchiectasis. Mild centrilobular emphysema.
7 mm right upper lobe nodule (series 201, image 9). 4 mm left upper lobe subpleural nodule (image 18). 5 mm subpleural right lower lobe nodule (image 38). 7 mm right upper lobe nodule (image 26).
No pericardial effusions or pathologically enlarged noncalcified lymph nodes in the thorax. No pneumothorax.
Influenza A Pos
-Not immunized
-Continue Tamiflu for 5 days, continue doxy/cefdinir for 5 days for bacterial superinfection coverage, s/p rocephin x 3 days
Hypokalemia
� Replete
Abnormal Troponin - Suspect non-ischemic myocardial injury
ASCVD
- Likely secondary to CHF as noted above
- Troponin 0.038-->0.039-->0.026-->0.034
- Continue current CV med regimen including ASA, statin, etc.
Permanent Atrial Fibrillation
- Stable. Continue propranolol.
- Not on chronic OAC.
- Monitor on telemetry.
Nausea
-Promethazine as needed, no Zofran due to QTc prolongation
QTc prolongation
-Avoid Zofran and other QTc prolonging agents
DM-II
- Stable. Follow glucose and cover with SSI if needed.
-6.0% A1C.
Rheumatoid Arthritis
- Stable. No acute joint pain, etc.
- On Remicade infusions as an outpatient.
- Continue prophylactic acyclovir.
DVT Prophylaxis: Subcut heparin
Full Code
Total time spent to see the patient on the floor, examine the patient, review data and lab results, discuss treatment plan with patient, nursing staff around 52 minutes.
Updated son on phone 05/25
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
Physical Exam
General: Frail, elderly, no acute distress
HEENT: Normocephalic, Atraumatic, EOMI, MMM
Respiratory: Clear to Auscultation bilaterally
Cardiac: Normal S1/S2, Regular Rate and Rhythm
GI: Soft, Nontender, Nondistended, Normal Bowel Sounds
Extremities: No Clubbing, Cyanosis, or Edema
Neuro: Nonfocal/Grossly Intact
Psych: Calm, Cooperative
Anticipated Discharge: 24 - 48 hours
Subjective/Interval History
-
Date of Service: May 26, 2024
Patient reports feeling nauseated. No vomiting. Denies shortness of breath. No coughing, no chest pain. No fever.
Objective Data
-
Labs:
Laboratory Results
05/26/24
07:36
Sodium 136
Potassium 3.3 L
Chloride 98
Carbon Dioxide 31 H
BUN 31 H
Creatinine 0.8
Glucose 109 H
Calcium 8.0 L
Vital Signs:
Vital Signs
Temp Pulse Resp BP Pulse Ox
97.7 F 66 16 144/55 92
05/26/24 07:00 05/26/24 08:14 05/26/24 08:14 05/26/24 07:00 05/26/24 08:14
I&O
05/25/24 05/26/24 05/27/24
06:59 06:59 06:59
Intake Total 480 / 480 360 / 360
Balance 480 / 480 360 / 360
[2024-05-26] MEDS: RESTASIS 0.05% OPHTHALMIC EMULSION 1 DROPS BOTH EYES (09:08)
[2024-05-26] MEDS: KLOR-CON 40 MEQ PO (09:33)
[2024-05-26] MEDS: OMNICEF 300 MG PO ×2 (09:33→20:36)
[2024-05-26] MEDS: ZOFRAN IV (09:38)
[2024-05-26] MEDS: PHENERGAN 25 MG PO (10:03)
--- NOTE | 2024-05-26 10:34 | W.HF.CON ---
Heart Failure
- LV Function
Left ventricular function study result: LV Ejection fraction >/= 50%
Ejection Fraction Percentage: 50-55
- ARNI
Patient already on ARNI: No
Heart Failure ARNI Not Indicated: LV Ejection Fraction >/= 40%
- ACEI/ARB
Heart Failure ACEI/ARB Not Indicated: LV Ejection Fraction > 40%
- Beta Monica
Patient already on Evidence Based Beta Monica: No
Heart Failure Evidence Based Beta Monica Not Indicated: LV Ejection Fraction > 40%
- Mineralocorticord Receptor Antagonist
Patient already on MRA: No
Heart Failure MRA Not Indicated: LV Ejection Fraction > 40%
- SGLT-2 Inhibitor
Patient already on SGLT-2 Inhibitor: No
Heart Failure SGLT-2 Inhibitor Not Indicated: LV Ejection Fraction >40%
- Afib Anticoagulation
Patient already on Anticoagulation for Afib: No
Heart Failure Afib Anticoagulation Contraindication: History of Falls
- NYHA CHF Classification
NYHA CHF Classification Level: Class III - Symptoms w/ min exertion, interferes w/ nml daily activity (pneumonia, severe MR)
- ACC/AHA Stage
ACC/AHA Stage: Stage C: Symptomatic Heart Failure
[2024-05-26 12:25] LABS: Glucose - Point of Care 161 mg/dl (70-99)
[2024-05-26] MEDS: ZOVIRAX PO ×3 (12:54→18:05)
[2024-05-26] MEDS: KCL 260 MEQ IV (15:00)
[2024-05-26 16:02] VITALS: BP 129/55
[2024-05-26 17:58] LABS: Glucose - Point of Care 130 mg/dl (70-99)
[2024-05-26] MEDS: ARICEPT 5 MG PO (20:37)
[2024-05-26] MEDS: CRESTOR 5 MG PO (20:37)
[2024-05-26 21:24] LABS: Glucose - Point of Care 88 mg/dl (70-99)
[2024-05-26 23:52] VITALS: BP 125/62
[2024-05-27] MEDS: SYNTHROID 50 MCG PO (05:18)
[2024-05-27] MEDS: STERILE WATER FOR INJECTION IV (05:18)
[2024-05-27 06:00] VITALS: BMI 15.4
[2024-05-27 06:50] LABS: Blood Urea Nitrogen 26 mg/dl (7-17); Calcium 8.1 mg/dl (8.4-10.2); Carbon Dioxide 31 mmol/L (22-30); Chloride 101 mmol/L (98-107); Estimated Creatinine Clearance 29 ml/min; Glucose 103 mg/dl (70-99); Magnesium 1.7 mg/dl (1.6-2.3); Potassium 3.7 mmol/L (3.5-5.1); Sodium 138 mmol/L (135-145); eGFR > 60.00
[2024-05-27 07:00] VITALS: BP 131/66
[2024-05-27 07:08] LABS: Glucose - Point of Care 96 mg/dl (70-99)
[2024-05-27] MEDS: VENTOLIN NEBULES 2.5 MG INH ×2 (07:19→20:38)
[2024-05-27] MEDS: SODIUM CHLORIDE 3% FOR INHALATION 1 VIAL INH (07:19)
--- NOTE | 2024-05-27 07:20 | W.PN.HOSP.TC ---
Today's Communication/Plan
-
Son has agreed to hospice
Start comfort care measures only
Assessment / Plan
Assessment / Plan
Cachexia
Severe Malnutrition
Mild dementia
Bereavement with recent loss of daughter
- Albumin 2.8 with severe supraclavicular muscle wasting
- Encourage oral intake, protein supp
- Son agreed to hospice and comfort care measures only on 05/27
- Discontinue unnecessary oral medications, focus on comfort
- Hospice and case management following, likely will need to be discharged to nursing facility on hospice
Acute HF with a preserved ejection fraction
Acute Hypoxemic Respiratory Failure secondary to the above
wt 41-->38.3kg
- Patient with persistent dyspnea, LE edema, elevated BNP, etc consistent with CHF.
- CXR with more prominent pulm edema pattern compared to prior.
- Appreciate cardiology input, resolved on Lasix 40 mg IV daily, currently on Lasix 40 mg daily, now on RA. Pulm also following
- Echo EF 60-65%, stage 3 DD, dilated L/R atrium, severe MR, mild-mod
05/22 CT lung: Small bilateral pleural effusions with associated compressive atelectasis. There are adjacent scattered tiny peripheral tree-in-bud/ground glass nodules throughout the dependent bilateral lower lobes, as well as within the right middle
lobe anteriorly.
There is diffuse bilateral bronchial wall thickening with mild cylindrical bronchiectasis. Mild centrilobular emphysema.
7 mm right upper lobe nodule (series 201, image 9). 4 mm left upper lobe subpleural nodule (image 18). 5 mm subpleural right lower lobe nodule (image 38). 7 mm right upper lobe nodule (image 26).
No pericardial effusions or pathologically enlarged noncalcified lymph nodes in the thorax. No pneumothorax.
Acute influenza A bronchitis (pneumonia ruled out)
Bronchiectasis
-Not immunized
-Continue Tamiflu for 5 days, stop doxy/cefdinir (for bacterial superinfection coverage, s/p rocephin x 3 days)
Hypokalemia
� Repleted and resolved
Abnormal Troponin - Suspect non-ischemic myocardial injury
ASCVD
- Stop aspirin, statin
Permanent Atrial Fibrillation
- Continue propranolol.
Nausea
-Promethazine as needed, no Zofran due to QTc prolongation
QTc prolongation
-Avoid Zofran and other QTc prolonging agents
DM-II
-6.0% A1C
-Stop Accu-Cheks and sliding scale insulin
Rheumatoid Arthritis
- On Remicade infusions as an outpatient.
-Stop acyclovir.
DVT Prophylaxis: SCDs
Full Code
Total time spent to see the patient on the floor, examine the patient, review data and lab results, discuss treatment plan with patient, nursing staff around 54 minutes.
Updated son on phone 05/27
Physical Exam
General: Frail, elderly, no acute distress
HEENT: Normocephalic, Atraumatic, EOMI, MMM
Respiratory: Clear to Auscultation bilaterally
Cardiac: Normal S1/S2, Regular Rate and Rhythm
GI: Soft, Nontender, Nondistended, Normal Bowel Sounds
Extremities: No Clubbing, Cyanosis, or Edema
Neuro: Pleasantly confused
Psych: Calm, Cooperative
Anticipated Discharge: 24 - 48 hours
Subjective/Interval History
-
Date of Service: May 27, 2024
Patient continues to feel nauseous, and has a difficult time swallowing her pills. She complains of heartburn when swallowing. No fever, no vomiting. Has dyspnea with activity. No shortness of breath at rest, no chest pain.
Objective Data
-
Labs:
Laboratory Results
05/27/24
05:54
Sodium 138
Potassium 3.7
Chloride 101
Carbon Dioxide 31 H
BUN 26 H
Creatinine 0.8
Glucose 103 H
Calcium 8.1 L
Vital Signs:
Vital Signs
Temp Pulse Resp BP Pulse Ox
98.4 F 61 16 125/62 100
05/26/24 23:52 05/26/24 23:52 05/26/24 23:52 05/26/24 23:52 05/27/24 01:27
I&O
05/26/24 05/27/24 05/28/24
06:59 06:59 06:59
Intake Total 360 / 360 340 / 340
Balance 360 / 360 340 / 340
[2024-05-27] MEDS: ZOVIRAX PO ×3 (08:06→11:55)
[2024-05-27] MEDS: OMNICEF PO ×2 (08:06→08:28)
[2024-05-27] MEDS: VIBRAMYCIN 100 MG PO (08:07)
[2024-05-27] MEDS: RESTASIS 0.05% OPHTHALMIC EMULSION 1 DROPS BOTH EYES (08:07)
[2024-05-27] MEDS: TAMIFLU PO ×2 (08:07→08:28)
[2024-05-27] MEDS: MUCINEX PO ×2 (08:07→08:27)
[2024-05-27] MEDS: HEPARIN 5000 UNITS SC (08:08)
[2024-05-27] MEDS: INDERAL 20 MG PO (08:08)
[2024-05-27] MEDS: ASPIR LOW (ENTERIC COATED) 81 MG PO (08:08)
[2024-05-27] MEDS: LASIX 40 MG PO (08:08)
[2024-05-27] MEDS: PHENERGAN 25 MG PO (08:09)
--- NOTE | 2024-05-27 11:25 | CM ---
CM consult complete for hospice eval
PLAN: Hospice eval
--- NOTE | 2024-05-27 11:42 | HOSPNOTE ---
Referral received. Spoke to son Kiran, he is in agreement with initiating comfort measures today. Will reassess in 24h to see if patient meets inpatient criteria. Attending updated and in agreement. CM also updated. Will reassess for inpatient
hospice tomorrow. More information to follow.
--- NOTE | 2024-05-27 12:05 | PTOTSP ---
SPOKE WITH RN. PATIENT TRANSITIONING TO COMFORT MEASURES TODAY AND WILL BE TRANSITIONING TO HOSPICE. PATIENT TO CONTINUE TO AMBULATE TO BATHROOM WITH STAFF. IN DISCUSSION AND IN AGREEMENT WITH NURSING, THERAPY WILL SIGN OFF AT THIS TIME.
[2024-05-27] MEDS: ATIVAN 0.5 MG IV ×3 (13:46→23:23)
[2024-05-27 15:00] VITALS: BP 111/42
[2024-05-27 19:00] VITALS: BP 141/59
[2024-05-27] MEDS: INDERAL PO (19:31)
[2024-05-28] MEDS: SYNTHROID PO (05:22)
[2024-05-28] MEDS: STERILE WATER FOR INJECTION IV (05:22)
[2024-05-28] MEDS: NSS (PRESERVATIVE FREE) 0.25 ML IV (05:48)
[2024-05-28] MEDS: ATIVAN 0.5 MG IV (05:48)
[2024-05-28] MEDS: VENTOLIN NEBULES 2.5 MG INH (07:09)
[2024-05-28 07:10] VITALS: BP 107/51
[2024-05-28] MEDS: INDERAL PO (09:15)
[2024-05-28] MEDS: LASIX PO (09:15)
--- NOTE | 2024-05-28 09:31 | W.PN.HOSP.TC ---
Today's Communication/Plan
-
Discharge to [facility] hospice today
Assessment / Plan
Assessment / Plan
Cachexia
Severe Malnutrition
Mild dementia
Bereavement with recent loss of daughter
- Albumin 2.8 with severe supraclavicular muscle wasting
- Encourage oral intake, protein supp
- Son agreed to hospice and comfort care measures only on 05/27
- Discontinued unnecessary oral medications, discharged to general inpatient hospice today
- Hospice and case management following, likely will need to be discharged to nursing facility on hospice
Acute HF with a preserved ejection fraction
Acute Hypoxemic Respiratory Failure secondary to the above
wt 41-->38.3kg
- Patient with persistent dyspnea, LE edema, elevated BNP, etc consistent with CHF.
- CXR with more prominent pulm edema pattern compared to prior.
- Appreciate cardiology input, resolved on Lasix 40 mg IV daily, currently on Lasix 40 mg daily, now on RA. Pulm also following
- Echo EF 60-65%, stage 3 DD, dilated L/R atrium, severe MR, mild-mod
05/22 CT lung: Small bilateral pleural effusions with associated compressive atelectasis. There are adjacent scattered tiny peripheral tree-in-bud/ground glass nodules throughout the dependent bilateral lower lobes, as well as within the right middle
lobe anteriorly.
There is diffuse bilateral bronchial wall thickening with mild cylindrical bronchiectasis. Mild centrilobular emphysema.
7 mm right upper lobe nodule (series 201, image 9). 4 mm left upper lobe subpleural nodule (image 18). 5 mm subpleural right lower lobe nodule (image 38). 7 mm right upper lobe nodule (image 26).
No pericardial effusions or pathologically enlarged noncalcified lymph nodes in the thorax. No pneumothorax.
Acute influenza A bronchitis (pneumonia ruled out)
Bronchiectasis
-Not immunized
-S/p Tamiflu, doxy/cefdinir (for bacterial superinfection coverage, s/p rocephin x 3 days)
Hypokalemia
� Repleted and resolved
Abnormal Troponin - Suspect non-ischemic myocardial injury
ASCVD
- Stopped aspirin, statin
Permanent Atrial Fibrillation
- Continue propranolol.
Nausea
-Promethazine as needed, no Zofran due to QTc prolongation
QTc prolongation
-Avoid Zofran and other QTc prolonging agents
DM-II
-6.0% A1C
-Stopped Accu-Cheks and sliding scale insulin
Rheumatoid Arthritis
- On Remicade infusions as an outpatient.
- Stopped acyclovir.
DVT Prophylaxis: SCDs
Full Code
Updated son on phone 05/27
Physical Exam
General: Frail, elderly
HEENT: Normocephalic, Atraumatic,
Respiratory: Clear to Auscultation bilaterally
Cardiac: Normal S1/S2, Regular Rate and Rhythm
GI: Soft, Nontender, Nondistended, Normal Bowel Sounds
Extremities: No Clubbing, Cyanosis, or Edema
Anticipated Discharge: Today
Subjective/Interval History
-
Date of Service: May 28, 2024
Patient not waking up. Not answering questions. No fever, no vomiting.
Objective Data
-
Vital Signs:
Vital Signs
Temp Pulse Resp BP Pulse Ox
97.4 F 83 16 107/51 93
05/28/24 07:10 05/28/24 07:11 05/28/24 07:11 05/28/24 07:10 05/28/24 08:37
I&O
05/27/24 05/28/24 05/29/24
06:59 06:59 06:59
Intake Total 340 / 340 100 / 100
Balance 340 / 340 100 / 100
--- NOTE | 2024-05-28 09:58 | W.DCSUMMARY ---
Discharge Summary
Discharge Data
Date of Admission: 05/22/24
Date of Discharge: 05/28/24
-
Pending Results: No
Hospital Course
Discharge diagnosis:
Acute hypoxic respiratory insufficiency
Acute heart failure with a preserved ejection fraction
Acute influenza infection
Mild dementia, unknown type
Bereavement, loss of daughter 1 month ago
Failure to thrive
Severe protein calorie malnutrition
Permanent atrial fibrillation
Type 2 diabetes
Rheumatoid arthritis
Severely biatrial enlargement
Severe mitral regurgitation
Mild to moderate aortic stenosis
Consults: Cardiology, pulmonology
Echocardiogram:
-LV ejection fraction is 60-65%, by visual assessment. No regional wall motion
abnormalities are seen. Stage III diastolic dysfunction suggestive of
restrictive filling pattern and increased filling pressures.
-Normal right ventricular size and function.
-Severely dilated left atrium. Severely dilated right atrium.
-Severe mitral regurgitation. Systolic flow reversal noted in the pulmonary
veins.
-Mild to moderate aortic stenosis; peak/mean gradients 11/6 mmHg, calculated
MERRILL 1.3 cm2. Mild aortic regurgitation.
-Mild tricuspid regurgitation. Estimated pulmonary artery pressure of 25-[address]:
1. Findings most in keeping with diffuse infectious/inflammatory bronchiolitis/bronchitis with probable inflammatory nodules, as detailed.
2. Small bilateral pleural effusions.
Hospital course:
84-year-old female with a past medical history of dementia, atrial fibrillation not on anticoagulation, hypertension, diabetes, rheumatoid arthritis, and anxiety who was admitted for acute hypoxic respiratory insufficiency secondary to acute heart
failure, and acute influenza infection.
Patient was seen in conjunction with cardiology. She was diuresed with Lasix 40 mg IV daily. Her breathing improved. Cardiology transitioned her to lasix 40 mg p.o. daily.
Patient was seen in conjunction with pulmonology. She was treated with Tamiflu for influenza infection. She also received IV Rocephin and doxycycline for bacterial superinfection.
Patient has severe protein calorie malnutrition, failure to thrive, and mild dementia. She complained of chronic nausea. Her BMI is 15.4. She has had poor eating for quite a while. She was seen in conjunction with hospice. Patient's poor
prognosis was discussed with her son, who agreed to transition her to comfort care measures only on 05/27/24. She is discharged to general inpatient hospice on comfort care measures only.
Disposition: General inpatient hospice
Discharge planning: Required 44 minutes
Discharge Plan
-
Patient Disposition: Hospice - Inpatient
Discharge Diagnosis/Procedures: Failure to thrive, dementia, bereavement, acute hypoxic respiratory insufficiency, congestive heart failure, influenza
Condition: Serious
Instructions: *PCP/Other Tours Hostess Heart Failure Instructions
Referrals:
UNKNOWN - PT DOES,NOT KNOW [Family Provider] -
Prescriptions:
No Action
acyclovir 400 mg Tablet
400 mg PO BID
cyclosporine [Restasis] 0.05 % Dropperette
1 drp BOTH EYES DAILY
rosuvastatin 5 mg Tablet
5 mg PO HS
Prolia 60 mg/mL Syringe
60 mg SC [id number]
Rx Instructions:
last given in February
mirabegron [Myrbetriq] 50 mg Tablet Extended Release 24 Hr
50 mg PO DAILY
infliximab [Remicade] 100 mg Recon Soln
100 mg IV Q8W
insulin lispro [Humalog KwikPen Insulin] 100 unit/mL Insulin Pen
1 sliding scale dose SC DIRECTED
acetaminophen 500 mg tablet
1,000 mg PO TID PRN (Reason: PAIN)
donepezil 5 mg Tablet
5 mg PO HS
propranolol 20 mg Tablet
20 mg PO BID
aspirin 81 mg Tablet,Delayed Release (Dr/Ec)
81 mg PO DAILY Qty: 90 0RF
Discharge Orders:
Discharge Patient (As Directed); Ordered 05/28/24
Ordered By: Kenneth Mann
Discharge Date and Time
Discharge Date/Time: 05/28/24 13:50
Print Language: PAKISTANI
[2024-05-28] MEDS: RESTASIS 0.05% OPHTHALMIC EMULSION BOTH EYES (10:34)
--- NOTE | 2024-05-28 11:18 | CM ---
Patient with Hx Cachexia, Severe Malnutrition, Mild dementia, Bereavement with Dx HF, Acute influenza A bronchitis. Comfort care.
Notified by [facility] that patient will remain here in comfort care. Per hospice nurse they had contact with son Kiran.
Message sent to Ailyn Marina, ANSON Moran Tano; we are not going to be needing SNF for rehab at [facility], she will stay here in hospice.
Plan [facility].
--- NOTE | 2024-05-28 11:23 | HOSPNOTE ---
Patient will be admitted inpatient hospice today. Attending and CM aware.
--- NOTE | 2024-05-28 13:16 | CHAP ---
Fr. Oakes of [facility], provided Ms. Del Valle with the Sacrament of the Sick/Last Rites at family's request.
== END 2024-05-28 13:50 | disposition hospice, inpatient (51) | DRG 193 ==
LOC: 2 NORTH 04:37
PROVIDERS: Emergency Medicine; Internal Medicine; ADMITTING PHYSICIAN Hospitalist; ATTENDING PHYSICIAN Family Medicine; CONSULT PHYSICIAN Internal Medicine; EMERGENCY PHYSICIAN Emergency Medicine
DX: J10.1 Influenza due to other identified influenza virus with other respiratory manifestations (principal); E43 Unspecified severe protein-calorie malnutrition; I50.33 Acute on chronic diastolic (congestive) heart failure; I48.21 Permanent atrial fibrillation; I5A Non-ischemic myocardial injury (non-traumatic); J21.9 Acute bronchiolitis, unspecified; D84.821 Immunodeficiency due to drugs; I69.353 Hemiplegia and hemiparesis following cerebral infarction affecting right non-dominant side; Z68.1 Body mass index [BMI] 19.9 or less, adult; J98.11 Atelectasis; J47.0 Bronchiectasis with acute lower respiratory infection; Z51.5 Encounter for palliative care; F03.A0 Unspecified dementia, mild, without behavioral disturbance, psychotic disturbance, mood disturbance, and anxiety; I11.0 Hypertensive heart disease with heart failure; E78.00 Pure hypercholesterolemia, unspecified; M06.9 Rheumatoid arthritis, unspecified; F41.9 Anxiety disorder, unspecified; J40 Bronchitis, not specified as acute or chronic; I25.10 Atherosclerotic heart disease of native coronary artery without angina pectoris; R62.7 Adult failure to thrive; I08.0 Rheumatic disorders of both mitral and aortic valves; E03.9 Hypothyroidism, unspecified; J43.2 Centrilobular emphysema; E11.9 Type 2 diabetes mellitus without complications; I45.10 Unspecified right bundle-branch block; R06.89 Other abnormalities of breathing; R09.02 Hypoxemia; M62.58 Muscle wasting and atrophy, not elsewhere classified, other site; E87.6 Hypokalemia; R11.0 Nausea; Z60.2 Problems related to living alone; Z28.39 Other underimmunization status; Z63.4 Disappearance and death of family member; Z79.82 Long term (current) use of aspirin; Z79.4 Long term (current) use of insulin; Z83.3 Family history of diabetes mellitus; Z80.51 Family history of malignant neoplasm of kidney; Z90.49 Acquired absence of other specified parts of digestive tract; Z79.620 Long term (current) use of immunosuppressive biologic; Z11.52 Encounter for screening for COVID-19
CPT/HCPCS: 71046; 71250; 80048; 80053; 80061; 82248; 82962; 83036; 83735; 83880; 84145; 84439; 84443; 84484; 85025; 85027; 87502; 87811; 92610; 93005; 93288; 93306; 94640; 94760; 96374; 97116; 97162; 97166; 97530; 97535; 99285